=== PATIENT | male | born 1955 | race Caucasian/White ===

== ENCOUNTER → 2018-09-03 22:12 | Emergency (ER) | payer MEDICAID, MEDICARE ==
--- NOTE | 2018-09-03 22:31 | ED ---
Lower Extremity - HPI Summary HPI Summary: This patient is a 62 year old male brought in by ambulance to [facility] with a chief complaint of left hip pain since 1 hour ago. Patient states that he suffered a mechanical fall while attempting to move from his wheelchair to his bed. He states that his legs gave out on him, which does not happen very often. Patient cites pain on the left hip and pain on the left side of his head from hitting a table during the fall. The pain is rated 0/10 in severity. Symptoms aggravated by nothing. Symptoms alleviated by nothing. Patient additionally reports contusion on left anabaptism. Patient denies headache, nausea. Patient has a hx of stroke. - History of Current Complaint Stated Complaint: FALL Time Seen by Provider: 09/03/18 22:18 Hx Obtained From: Patient Mechanism Of Injury: Fall From A Standing Position Onset of Pain: Immediate Onset/Duration: Hours Severity Currently: Mild Pain Intensity: 0 Pain Scale Used: 0-10 Numeric Timing: Constant Location: Is Discrete @ - left hip Associated Signs And Symptoms: Positive: Negative - headache, nausea, Other - contusion on left anabaptism Aggravating Factor(s): Nothing Alleviating Factor(s): Nothing - Allergies/Home Medications Allergies/Adverse Reactions: Allergies Allergy/AdvReac Type Severity Reaction Status Date / Time No Known Allergies Allergy Verified 12/26/14 08:05 PMH/Surg Hx/FS Hx/Imm Hx Previously Healthy: No Endocrine/Hematology History: Reports: Hx Diabetes Cardiovascular History: Reports: Hx Hypercholesterolemia, Hx Hypertension, Hx Peripheral Vascular Disease, Other Cardiovascular Problems/Disorders - Afib Denies: Hx Pacemaker/ICD Respiratory History: Denies: Hx Chronic Obstructive Pulmonary Disease (COPD) History: Denies: Hx Dialysis Musculoskeletal History: Reports: Hx Arthritis - HIPS Sensory History: Reports: Hx Contacts or Glasses Denies: Hx Cataracts, Hx Eye Injury, Hx Eye Prosthesis, Hx Glaucoma, Hx Legally Blind, Hx Macular Degeneration, Hx Vision Problem, Hx Deafness, Hx Hearing Aid, Hx Hearing Problem, Other Sensory Impairments Opthamlomology History: Reports: Hx Contacts or Glasses Denies: Hx Cataracts, Hx Eye Injury, Hx Eye Prosthesis, Hx Glaucoma, Hx Legally Blind, Hx Macular Degeneration, Hx Vision Problem, Other Sensory Impairments Neurological History: Reports: Hx Transient Ischemic Attacks (TIA) Denies: Hx Dementia, Hx Developmental Delay, Hx Headaches, Hx Migraine, Hx Nerve Disease, Hx Seizures, Hx Spinal Cord Injury, Other Neuro Impairments/ Disorders Psychiatric History: Reports: Hx Depression Denies: Hx Panic Disorder - Surgical History Surgery Procedure, Year, and Place: RIGHT HIP 12/26/2014;. 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 - Social History Lives: At [facility] Alcohol Use: Occasionally Alcohol Amount: states about 2 a week Hx Substance Use: No Substance Use Type: Reports: None Hx Tobacco Use: No Smoking Status (MU): Never Smoked Tobacco Review of Systems Negative: Fever Negative: Nausea Positive: Other - contusion on left anabaptism, left hip pain Negative: Headache All Other Systems Reviewed And Are Negative: Yes Physical Exam - Summary Physical Exam Summary: Appearance: Well-appearing, Well-nourished, lying in bed comfortable Skin: Warm, dry, Contusion of left anabaptism and contusion overlying left great trochanter Eyes: sclera anicteric, no conjunctival pallor ENT: mucous membranes moist Neck: deferred Respiratory: No signs of respiratory distress Cardiovascular: Appears well perfused, pulses are nml Abdomen: deferred Musculoskeletal: Moving all 4 extremities without obvious discomfort Neurological: Awake and alert, mentation is normal, speech is fluent and appropriate Psychiatric: affect is normal, does not appear anxious or depressed Triage Information Reviewed: Yes Vital Signs Reviewed: Yes Diagnostics - Laboratory Result Diagrams: 09/03/18 22:43 09/03/18 22:43 Lab Statement: Any lab studies that have been ordered have been reviewed, and results considered in the medical decision making process. - EKG 2243 Cardiac Rate: NL EKG Rhythm: Sinus Rhythm - 83 BPM Summary of EKG Findings: An EKG, taken 2243, reveals NSR (83 BPM), sinus pause, RBBB, old inferior infarct Lower Extremity Course/Dx - Course Assessment/Plan: This patient is a 62 year old male brought in by ambulance to [facility] with a chief complaint of left hip pain since 1 hour ago. Patient states that he suffered a mechanical fall while attempting to move from his wheelchair to his bed. An EKG, taken 2243, reveals NSR (83 BPM), sinus pause, RBBB, old inferior infarct. Patient will be discharged with a dx of hip contusion. Patient is advised to follow up with PCP in 3 days. The patient is agreeable with this plan. - Diagnoses Provider Diagnoses: Contusion, hip Discharge - Sign-Out/Discharge Documenting (check all that apply): Patient Departure - Discharge Plan Condition: Stable Disposition: HOME Patient Education Materials: Hip Contusion (ED) Referrals: Caden Malik MD [Primary Care Provider] - - Attestation Statements Document Initiated by Scribe: Yes Documenting Scribe: Magaly Mooney Provider For Whom Jonnathanibe is Documenting (Include Credential): Michel Benitez MD Scribe Attestation: Magaly Foley, scribed for Michel Benitez MD on 09/04/18 at 0211. Status of Scribe Document: Ready
[2018-09-03 22:57] LABS: ABS Basophils 0.1 10^3/ul (0-0.2); ABS Eosinophils 0.2 10^3/ul (0-0.6); ABS Lymphocytes 1.1 10^3/ul (1.0-4.8); ABS Monocytes 0.6 10^3/ul (0-0.8); ABS Neutrophils 10.8 10^3/ul (1.5-7.7); ABS Nucleated RBC 0 10^3/ul; Eosinophil % 1.2 %; Hematocrit 52 % (42-52); Hemoglobin 17.3 g/dl (14.0-18.0); Lymphocyte % 8.4 %; Mean Corpuscular HGB Conc 33 g/dl (31-36); Mean Corpuscular Hemoglobin 30 pg (27-31); Mean Corpuscular Volume 91 fL (80-94); Mean Platelet Volume 9.2 fL (7.4-10.4); Nucleated Red Blood Cells % 0.1; Platelet Count 230 10^3/ul (150-450); Red Cell Distribution Width 14 % (10.5-15); White Blood Count 12.7 10^3/ul (3.5-10.8)
[2018-09-03 23:04] LABS: INR 1.16 (0.77-1.02)
[2018-09-03 23:09] LABS: Albumin/Globulin Ratio 1.4 (1-3); BUN/Creatinine Ratio 25.7 (8-20); Calcium 9.5 mg/dL (8.6-10.3); EGFR African American 91.2 (>60); EGFR Non-African American 75.4 (>60); Globulin 2.9 g/dL (2-4); Potassium 3.8 mmol/L (3.5-5.0); Total Bilirubin 0.7 mg/dL (0.2-1.0); Total Protein 6.9 g/dL (6.4-8.9)
--- OUTSIDE RECORDS SUMMARY | 2018-09-03 23:27 | XMS REPORT | Continuity of Care Document ---
:1955 External Reference #:[id number] Author Name Kim Galdamez Care Team Providers Name Role Phone Shasta Bee DO Primary Care Physician Unavailable Payers Type Date Identification Numbers Payment Provider Subscriber Policy Number: [id number] Medicare Rafael Medley PayID: [id number] [address] [place] [address] Policy Number: [id number] Medicaid Rafael Medley Group Name: 1 1 [address] PayID: [id number] [place] [address] Advance Directives Description No Information Available Problems Date Description Provider Status Onset: 02/09/2014 Malignant essential hypertension Amilcar Guerra M.D. Onset: 02/09/2014 Electrocardiogram abnormal Amilcar Guerra M.D. Onset: 02/09/2014 Supraventricular premature beats Amilcar Guerra M.D. 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 Onset: 11/24/2017 Mitral valve disorder Amilcar Guerra M.D. Onset: 11/24/2017 First degree atrioventricular block Amilcar Guerra M.D. Onset: 11/24/2017 Right bundle branch block Jamin Weldon Active [place] Onset: 11/24/2017 Left bundle branch hemiblock Jamin Weldon Active MGely. Onset: 11/24/2017 Bradycardia, unspecified [place] ECHO Schedule Active Onset: 11/24/2017 Bifascicular block Jamin Weldon Active M.DMichael Onset: 11/24/2017 Malaise and fatigue Mago Juan, Active [facility] [employer] [facility] Onset: 11/24/2017 Unspecified dementia without Mago Juan, Active behavioral disturbance [employer] Onset: 11/24/2017 Cerebral artery occlusion Mago Juan, Active [employer] Onset: 11/24/2017 Fall Amy Sidhu, [employer] Active Onset: 11/24/2017 Right bundle branch block Jamin Weldon Active [place] Onset: 11/24/2017 Seizure Milton Rowe M.D. Active Onset: 11/24/2017 Arterial thrombosis Timothy Jacobs M.D. Active Onset: 11/24/2017 Altered mental status Milton Rowe M.D. Active Onset: 11/24/2017 Cerebral artery occlusion Amilcar Guerra M.D. Onset: 11/24/2017 Conduction disorder of the heart Amilcar Guerra M.D. Onset: 11/24/2017 Essential hypertension Amilcar Guerra M.D. Onset: 11/24/2017 Cerebral artery occlusion Anali Stewart M.D. Active Onset: 11/24/2017 Type 2 diabetes mellitus Anali Stewart M.D. Active Onset: 11/24/2017 Alcohol abuse Anali Stewart M.D. Active Onset: 11/24/2017 Acute ill-defined cerebrovascular Baldo Quintero M.D. Active disease Onset: 11/24/2017 Electroencephalogram abnormal Radha Darling MD Active Onset: 11/24/2017 Altered mental status Frank Ritter M.D. Active Onset: 11/24/2017 Aftercare Following Joint Alecia Milner M.D. Active Replacement Onset: 11/24/2017 Prosthetic arthroplasty of the hip Alecia Milner M.D. Active Onset: 11/24/2017 Degenerative joint disease of Alecia Milner M.D. Active pelvis Onset: 11/24/2017 Aftercare, Orthopedic Other Alecia Milner M.D. Active Onset: 11/24/2017 Blood chemistry abnormal Carol Marte N.P. Active Onset: 11/24/2017 Hyperlipidemia Sunny Roberson M.D. Active Onset: 11/24/2017 Systemic inflammatory response Esteban Garner N.P. Active syndrome Onset: 11/24/2017 Localized, primary osteoarthritis Alecia Milner M.D. Active of the pelvic region and thigh Onset: 11/24/2017 Arthralgia of the pelvic region and Alecia Milner M.D. Active thigh Onset: 11/24/2017 Ulcer of foot Timothy Lozada M.D. Active Onset: 11/24/2017 Aftercare Following Surgery Of The Timothy Lozada M.D. Active Musculoskeletal System, NEC Onset: 11/24/2017 Chronic osteomyelitis of ankle Timothy Lozada M.D. Active and/or foot Onset: 11/24/2017 Amputated big toe Timothy Lozada M.D. Active Onset: 11/24/2017 Removal of suture Timothy Lozada M.D. Active Onset: 11/24/2017 Infection of skin and/or Timothy Lozada M.D. Active subcutaneous tissue Onset: 11/24/2017 Conduction disorder of the heart Amilcar Guerra M.D. Onset: 11/24/2017 Mixed hyperlipidemia Amilcar Guerra M.D. Family History Date Family Member(s) Problem(s) Comments General Heart Disease General Cancer Father due to [place] () - 62 Mother Pancreatic Cancer endstage First Sister Heart Disease half sister, mom Social History Type Date Description Comments Sex Unknown Marital Status Lives With living at skilled facility Occupation Disabled Tobacco Use Start: Unknown Never Smoked Cigarettes Smoking Status Reviewed: 02/24/18 Never Smoked Cigarettes ETOH Use Denies alcohol use Tobacco Use Start: Unknown Patient has never smoked Recreational Drug Use Denies Drug Use Exercise Type/Frequency Does not exercise Allergies, Adverse Reactions, Alerts Date Description Reaction Status Severity Comments 07/19/2015 Gabapentin dizzy Active per [facility] 07/19/2015 Lipitor BP elevation Active per [facility] 02/09/2014 NKDA Inactive Medications Medication Date Status Form Strength Qnty SIG Indications Ordering Provider Metformin HCL 02/08/ Active Tablets 1000mg 1 by mouth E11.9 Jeannie 2018 twice a day Osmany, BRITTANY Ketoconazole 11/24/ Active Shampoo 2% apply Jeannie 2017 topically as Osmany, directed to [facility] [place] Atorvastatin 01/22/ Active Tablets 20mg 30tab take 1 tablet Qutaybeh Calcium 2016 s at bedtime Ema Weldon M.D. Metoprolol / Active Tablets 25mg 1 po qd Unknown Succinate 0000 Lisinopril / Active Tablets 20mg 1 by mouth Unknown 0000 every day Vitamin B-12 / Active 1000mcg 1 by mouth Unknown 0000 every day Vitamin D3 / Active 2000Iu 1 by mouth Unknown 0000 every day Xarelto / Active Tablets 20mg 1 by mouth Unknown 0000 every day Tylenol / Active Tablets 325mg 2 by mouth Rohit, 0000 every 6 hours Shasta, prn DO [id number] Loperamide HCL / Active Capsules 2mg take one Unknown 0000 capsule by mouth every 4 hours as needed Abilify / Active Tablets 2mg 1 by mouth Unknown 0000 every day Sertraline HCL / Active Tablets 100mg 1 by mouth Unknown 0000 every day Venlafaxine HCL 11/24/ Hx Tablets 37.5mg 30tab 1 by mouth Jeannie 2018 - s every day for Osmany, 01/07/ 2 weeks (end [facility] [facility] 2017 date 11/28/17) Metformin HCL 11/24/ Hx Tablets 500mg 90tab 1 by mouth Jeannie ER 2018 - ER 24HR s every day Osmany, 02/08/ with [facility] [employer] [facility] 2018 breakfast and hs Percocet 02/19/ Hx Tablets 5-325mg 40tab 1-2 by mouth V54.81 Alecia 2014 - s bid as needed Alf, 01/01/ pain M.D. 2014 Percocet 12/21/ Hx Tablets 5-325mg 60tab 1-2 tabs by Alecia 2014 - s mouth tid as Alf, 01/01/ needed pain M.D. 2014 Colace 12/21/ Hx Capsules 100mg 60cap 1 tab by Alecia 2014 mouth twice a Alf, 11/24/ day as needed M.D. 2017 constipation Coumadin 12/21/ Hx Tablets 2mg 90tab 1-3 tab by Alecia 2014 mouth as Alf, 01/01/ directed at M.D. 2014 5pm daily Metronidazole 09/25/ Hx Tablets 500mg 20tab 1 tab by 730.17 Yovani 2014 mouth every D. 04/30/ 12 hours Jey 2014 Robbin Sulfamethoxazol 09/18/ Hx Tablets 800-160mg 28tab 1 by mouth Timothy e/Trimethoprim 2014 twice a day x TOM Lozada 12/06/ days M.Emiliano 2014 Augmentin 02/23/ Hx Tablets 875-125mg 28tab 1 by mouth 730.17 Yovani 2013 - s twice a day D. 08/20/ Jey 2014 Robbin Lisinopril 02/09/ Hx Tablets 5mg 30tab 1 by mouth Jamin 2013 - s every day S. 08/20/ Fatemeh Cage M.D. Clonidine HCL / Hx Tablets 0.1mg 1 by mouth Unknown 0000 - bid 2016 Metformin HCL / Hx Tablets 500mg 60tab 1 by mouth Unknown 0000 - s twice a day 2015 Amoxicillin/Cla / Hx Tablets 875-125mg 20tab one tablet by Unknown vulanate 0000 - s mouth twice Potassium 08/20/ daily for 10 2014 days Diclofenac-Miso / Hx Tablets 50-0.2mg 1 po bid Unknown prostol 0000 - DR 2014 Aspirin Ec / Hx Tablets 81mg 1 by mouth Unknown 0000 - DR every day 2016 Oxycodone-Aceta / Hx Tablets 5-325mg Darlow, minophen - Caden A., 2014 Losartan 00/ Hx Tablets 100mg 1 po qd Darlow, Potassium 0000 - Caden A., 2015 Fenofibrate / Hx Capsules 67mg Darlow, Micronized 0000 - Caden A., 2014 Oxycodone HCL 00/ Hx Tablets 10mg 1 by mouth Unknown 0000 - every 6 hours 01/01/ as needed 2014 pain Enoxaparin / Hx Solution 100mg/ml sq twice a Unknown Sodium 0000 - day (last 07/18/ dose 05/02 pm) 2014 Fenofibrate / Hx Capsules 134mg 1 po qd Unknown Micronized 0000 - 2015 Warfarin Sodium / Hx Tablets 5mg 10mg on 04/30 Unknown 0000 - 7.5 mg 05/01 01/19/ recheck 05/[address] Malki Priandrec / Hx Capsules 20mg 1 by mouth Unknown 0000 - DR every day 2016 Simvastatin / Hx Tablets 40mg 1 by mouth Unknown 0000 - every day 2016 Amlodipine / Hx Tablets 5mg 1 by mouth Unknown Besylate 0000 - every day 2017 Prozac / Hx Capsules 30mg 20 mg tab and Unknown 0000 - 10 mg tab for 09/01/ a total of 30 2018 mg daily Remeron / Hx Tablets 15mg give 7.5 mg Rohit, 0000 - by mouth at Shasta, 01/07/ bedtime DO 2018 Effexor XR / Hx Caps ER 75mg 1 by mouth Unknown 0000 - 24HR every day 2017 Immunizations Description No Information Available Vital Signs Date Vital Result Comment 08/12/2018 1:54pm Heart Rate 60 /min BP Systolic Sitting 130 mmHg BP Diastolic Sitting 80 mmHg Respiratory Rate 17 /min O2 % BldC Oximetry 99 % 07/01/2018 3:55pm Weight 177.00 lb Heart Rate 67 /min BP Systolic 110 mmHg BP Diastolic 70 mmHg Respiratory Rate 18 /min Body Temperature 96.9 F O2 % BldC Oximetry 97 % 03/16/2018 11:33am Heart Rate 72 /min BP Systolic 126 mmHg BP Diastolic 74 mmHg Respiratory Rate 16 /min Body Temperature 98.4 F O2 % BldC Oximetry 98 % 02/24/2018 10:27am Height 74 inches 6'2" Heart Rate 82 /min BP Systolic Sitting 134 mmHg lue reg cuff BP Diastolic Sitting 94 mmHg lue reg cuff Ejection Fraction 55-60% echo 02/08/18 01/07/2018 2:15pm Weight 211.12 lb BP Systolic 114 mmHg BP Diastolic 72 mmHg 09/02/2017 1:38pm Weight 158.00 lb pt reported, in wheelchair Heart Rate 60 /min BP Systolic Sitting 140 mmHg LA, reg cuff BP Diastolic Sitting 72 mmHg LA, reg cuff Ejection Fraction 60%-65% echo 03/18/17 01/22/2017 10:08am Height 74 inches 6'2" Weight 191.00 lb w/shoes Heart Rate 60 /min BP Systolic Sitting 118 mmHg Ra reg cuff BP Diastolic Sitting 88 mmHg Ra reg cuff BMI (Body Mass Index) 24.5 kg/m2 Ejection Fraction 60-65% Echo 01/03/16 01/21/2016 11:18am Height 74 inches 6'2" Heart Rate 68 /min BP Systolic Sitting 106 mmHg LA reg cuff BP Diastolic Sitting 84 mmHg LA reg cuff Ejection Fraction 60-65% Echo 01/14/16 07/19/2015 4:14pm Height 74 inches 6'2" Weight 221.25 lb with shoes Heart Rate 70 /min BP Systolic Sitting 142 mmHg La reg cuff BP Diastolic Sitting 96 mmHg La reg cuff Respiratory Rate 17 /min BMI (Body Mass Index) 28.4 kg/m2 Ejection Fraction 55-60% date 04/24/15 Raymundo 05/01/2015 3:46pm Height 74 inches 6'2" Weight 221.75 lb w/shoes Heart Rate 50 /min BP Systolic Sitting 142 mmHg LA reg cuff BP Diastolic Sitting 80 mmHg LA reg cuff BMI (Body Mass Index) 28.5 kg/m2 Ejection Fraction 55-60 Raymundo 04/24/15 03/19/2015 7:53am Height 74 inches 6'2" Weight 225.00 lb Pain Level 0 BMI (Body Mass Index) 28.9 kg/m2 02/19/2015 2:42pm Height 74 inches 6'2" Weight 225.00 lb Pain Level 0 BMI (Body Mass Index) 28.9 kg/m2 01/12/2015 10:30am Height 74 inches 6'2" Weight 225.00 lb Body Temperature 95.9 F BMI (Body Mass Index) 28.9 kg/m2 12/21/2014 2:16pm Height 74 inches 6'2" Weight 225.00 lb Heart Rate 57 /min BP Systolic 152 mmHg BP Diastolic 102 mmHg Pain Level 5 BMI (Body Mass Index) 28.9 kg/m2 12/07/2014 9:49am Height 74 inches 6'2" Weight 225.00 lb Heart Rate 49 /min BP Systolic 152 mmHg BP Diastolic 105 mmHg Pain Level 7 BMI (Body Mass Index) 28.9 kg/m2 10/31/2014 3:08pm Height 74 inches 6'2" Weight 225.00 lb Pain Level 3 BMI (Body Mass Index) 28.9 kg/m2 2014 4:40pm Height 74 inches 6'2" Weight 225.00 lb Pain Level 5 BMI (Body Mass Index) 28.9 kg/m2 09/29/2014 3:52pm Height 74 inches 6'2" Heart Rate 51 /min BP Systolic 144 mmHg BP Diastolic 92 mmHg 09/25/2014 1:57pm Height 74 inches 6'2" Weight 228.00 lb w/ brace Heart Rate 56 /min BP Systolic Sitting 158 mmHg BP Diastolic Sitting 98 mmHg Body Temperature 97.4 F BMI (Body Mass Index) 29.3 kg/m2 09/19/2014 2:59pm Height 74 inches 6'2" Weight 228.00 lb Pain Level 8 BMI (Body Mass Index) 29.3 kg/m2 08/30/2014 1:45pm Height 74 inches 6'2" Weight 228.00 lb Heart Rate 58 /min BP Systolic 153 mmHg BP Diastolic 98 mmHg Pain Level 0 BMI (Body Mass Index) 29.3 kg/m2 08/21/2014 2:43pm Height 74 inches 6'2" Weight 228.00 lb Heart Rate 60 /min BP Systolic Sitting 132 mmHg BP Diastolic Sitting 81 mmHg Respiratory Rate 14 /min Body Temperature 98.1 F BMI (Body Mass Index) 29.3 kg/m2 02/23/2014 2:13pm Weight 226.00 lb Heart Rate 58 /min irregular BP Systolic Sitting 162 mmHg BP Diastolic Sitting 90 mmHg Respiratory Rate 16 /min Body Temperature 97.6 F 02/10/2014 11:02am Height 74 inches 6'2" Weight 231.00 lb Heart Rate 49 /min BP Systolic 165 mmHg BP Diastolic 90 mmHg BMI (Body Mass Index) 29.7 kg/m2 02/09/2014 11:24am Height 74 inches 6'2" Weight 230.00 lb Heart Rate 80 /min irregular BP Systolic Sitting 186 mmHg BP Diastolic Sitting 118 mmHg Respiratory Rate 16 /min BMI (Body Mass Index) 29.5 kg/m2 Results Test Date Facility Test Result H/L Range Note Laboratory test 07/12/2018 [facility] Hemoglobin A1c 5.1 % N 4.0-5.6 1, 2 finding (Glyco HGB) [place] [address] [phone] Urinalysis 12/21/2014 [facility] [place] [address] [phone] Urine Appearance Cloudy N Urine Specific [place] 1.024 N 1.010-1.030 Urine pH 5.0 N 5-9 Urine Urobilinogen Negative N Negative Urine Ketones Negative N Negative Urine Protein Negative N Negative Urine Leukocytes Negative N Negative Urine Blood Negative N Negative Urine Nitrite Negative N Negative Urine Bilirubin Negative N Negative Urine Glucose Negative N Negative Basic Metabolic Panel 12/21/2014 [facility] Sodium 139 mmol/L N 133-145 [place] [address] [phone] Potassium 4.1 mmol/L N 3.5-5.0 Chloride 102 mmol/L N 101-111 Co2 Carbon Dioxide 31 mmol/L N 22-32 Anion Gap 6 mmol/L N 2-11 Glucose 97 mg/dL N 70-100 Blood Urea Nitrogen 20 mg/dL N 6-24 Creatinine 1.84 mg/dL High 0.67-1.17 BUN/Creatinine Ratio 10.9 N 8-20 Calcium 9.3 mg/dL N 8.6-10.3 Egfr Non- 38.1 N >60 Egfr 49.0 N >60 3 Type & Screen 12/21/2014 [facility] Patient [place] [address] [phone] Antibody Screen NEGATIVE N Wound 09/19/2014 [facility] Wound/Misc (SEE 4, 5 Culture/Sensi Culture-Gram NOTE) [place] [address] Stain [phone] Laboratory test 09/19/2014 [facility] Anaerobic Culture (SEE 6 finding NOTE) [place] [address] [phone] Surgical Pathology 09/19/2014 [facility] S RUN DATE: [address]/ [place] [address] <SEE [phone] NOTE> Comp Metabolic 02/23/2014 Sodium 138 N 133- Panel mmol/L 145 Potassium 4.4 mmol/L N 3.7-5.6 Chloride 103 mmol/L N 101-111 Co2 Carbon Dioxide 30 mmol/L N 22-32 Anion Gap 5 mmol/L N 2-11 Glucose 207 mg/dL High 70-100 Blood Urea Nitrogen 21 mg/dL N 6-24 Creatinine 1.31 mg/dL High 0.67-1.17 BUN/Creatinine Ratio 16.0 N 8-20 Calcium 9.6 mg/dL N 8.6-10.3 Total Protein 7.5 g/dL N 6.4-8.9 Albumin 4.3 g/dL N 3.2-5.2 Globulin 3.2 g/dL N 2-4 Albumin/Globulin Ratio 1.3 N 1-3 Total Bilirubin 1.00 mg/dL N 0.2-1.0 Alkaline Phosphatase 125 U/L High 34-104 Alt 22 U/L N 7-52 Ast 15 U/L N 13-39 Egfr Non- 56.6 N >60 Egfr 72.8 N >60 8 CBC Auto Diff 02/23/2014 White Blood Count 11.3 10^3/uL High 4.8-10.8 Red Blood Count 5.62 10^6/uL High 4.0-5.4 Hemoglobin 17.7 g/dL N 14.0-18.0 Hematocrit 51 % N 42-52 Mean Corpuscular Volume 91 fL N 80-94 Mean Corpuscular Hemoglobin 31 pg N 27-31 Mean Corpuscular HGB Conc 35 g/dL N 31-36 Red Cell Distribution Width 13 % N 10.5-15 Platelet Count 235 10^3/uL N 150-450 Mean Platelet Volume 10 um3 N 7.4-10.4 Abs Neutrophils 8.7 10^3/uL High 1.5-7.7 Abs Lymphocytes 1.4 10^3/uL N 1.0-4.8 Abs Monocytes 0.9 10^3/uL High 0-0.8 Abs Eosinophils 0.1 10^3/uL N 0-0.6 Abs Basophils 0.1 10^3/uL N 0-0.2 Abs Nucleated RBC 0.01 10^3/uL N Granulocyte % 77.2 % N 38-83 Lymphocyte % 12.8 % Low 25-47 Monocyte % 8.0 % N 1-9 Eosinophil % 1.2 % N 0-6 Basophil % 0.8 % N 0-2 Nucleated Red Blood Cells % 0.1 N Laboratory test finding 02/23/2014 C Reactive Protein 2.04 mg/L N < 5.00 9 Erythrocyte Sed Rate 4 mm/Hr N 0-20 Wound Culture/Sensi 02/23/2014 [facility] Wound/Misc (SEE NOTE) [address] [place] [address] [phone] 1 [facility] [address], Room Number 206D [id number] 2 Therapeutic target for the treatment of diabetes mellitus patients is <7% HBA1C, and in selective patients <6.0%. Please refer to [place] Diabetes Association diabetic care guidelines for further information. 3 Because ethnic data is not always readily available, this report includes an eGFR for both -Americans and non- Americans. The National Kidney Disease Education Program (NKDEP) does not endorse the use of the MDRD equation for patients that are not between the ages of 18 and 70, are , have extremes of body size, muscle mass, or nutritional status, or are non- or non-. According to the National Kidney Foundation, irrespective of diagnosis, the stage of the disease is based on the level of kidney function: Stage Description GFR(mL/min/1.73 m(2)) 1 Kidney damage with normal or decreased GFR 90 2 Kidney damage with mild decrease in GFR 60-89 3 Moderate decrease in GFR 30-59 4 Severe decrease in GFR 15-29 5 Kidney failure <15 (or dialysis) 4 RIGHT GREAT TOE 5 RUN DATE: 09/19/14 [facility] LAB LIVE PAGE 1 RUN TIME: 9107 [address] [facility], [place], [place] [address] Specimen Inquiry Name: RAFAEL MEDLEY I : [address]: Timothy Lozada MD Acct: [id number] Unit: [id number] AGE: 58 Location: OR Re09/18/14 SEX: M Status: REG SDC SPEC: [id number] DAVID: 09/19/[address]: Timothy Lozada MD REQ: [id number] RECD: 09/19/14 STATUS: RES OTHR DR: Caden Malik MD _ SOURCE: WOUND SPDESC:OTHER ORDERED: Anaerobic Cult, Culture Stain COMMENTS: RIGHT GREAT TOE QUERIES: Specimen Description RIGHT GREAT TOE Procedure Result Verified Site Anaerobic Culture PENDING Wound/Misc Gram Stain Final 09/19/14- 1547 ML 1+ Neutrophils 1+ Epithelial Cells 1+ Gram Negative Bacilli Wound/Misc Culture PENDING END OF REPORT * ML=Testing performed at Main Lab DEPARTMENT OF PATHOLOGY, [facility] Ticket [employer] [place], [place] [address] Marin Caballero M.D. Director [facility] # [id number] RUN DATE: 09/23/14 [facility] LAB LIVE PAGE 1 RUN TIME: [address] [place] [address] Specimen Inquiry Name: RAFAEL MEDLEY Og : [address]: Timothy Lozada MD Acct: [id number] Unit: [id number] AGE: 58 Location: OR Re09/18/14 SEX: M Status: REG SDC SPEC: [id number] DAVID: 09/19/[address] [facility] [address]: Timothy Lozada MD REQ: [id number] RECD: 09/19/14 STATUS: GABBI ELENA DR: Caden Malik MD _ SOURCE: WOUND SPDESC:OTHER ORDERED: Anaerobic Cult, Culture Stain COMMENTS: RIGHT GREAT TOE QUERIES: Specimen Description RIGHT GREAT TOE Procedure Result Verified Site Anaerobic Culture Final 09/23/14- 1037 ML No Growth Day 4 Wound/Misc Gram Stain Final 09/19/14- 1547 ML 1+ Neutrophils 1+ Epithelial Cells 1+ Gram Negative Bacilli Wound/Misc Culture Final 09/23/14- 1037 ML No Growth Day 4 END OF REPORT * ML=Testing performed at Main Lab DEPARTMENT OF PATHOLOGY, [facility] Ticket [employer] [place], [place] [address] Marin Caballero M.D. Director [facility] # [id number] RUN DATE: 10/05/14 [facility] LAB LIVE PAGE 1 RUN TIME: [address] [facility] youcalc [place], [place] [address] Specimen Inquiry Name: RAFAEL MEDLEY I : [address]: Timothy Lozada MD Acct: [id number] Unit: [id number] AGE: 58 Location: OR Re09/18/14 SEX: M Status: REG [facility] SPEC: [id number] DAVID: 09/19/14- [facility] DR: Timothy Lozada MD REQ: [id number] RECD: 09/19/14-1023 STATUS: SOUT _ ORDERED: Decal, LEVEL IV FINAL DIAGNOSIS Right great toe, disarticulation: -- Ulcer and ulcer bed. -- Margins of resection viable. -- Bone and cartilage with reactive change and no evidence of acute osteomyelitis. COMMENT: Due to an unusually large number of plasma cells in the inflammatory infiltrate, kappa and lambda in situ hybridization studies were performed, with appropriately reacting controls, and show that the plasma cell infiltrate is polyclonal. PRE-OPERATIVE DIAGNOSIS Osteomyelitis right great toe GROSS DESCRIPTION The specimen is received in formalin labeled, Disarticulation Right Great Toe , and consists of a 7.3 x 4.4 x 3.3 cm disarticulated digit which is partially surfaced by a 1.8 x 1.2 cm figueroa-yellow unguis. The bone margin displays smooth to granular figueroa-white articular surface. The skin margin appears viable. There is a 1.8 x 1.3 x 0.5 cm figueroa briseno crusted area and a 0.8 x 0.6 x 0.3 cm briseno white thickened area, on the medial and lateral aspects of the unguis respectively. The remaining skin is wrinkled figueroa-pink. Received separately in the same container is a 3.3 x 2.5 x 1.0 cm aggregate of multiple figueroa-white irregular bone and soft tissue fragments. The specimen is sectioned and client account representative sections are submitted in cassettes A through D as follows: A-skin margin, B-skin lesions and C- bone margin following decalcification. Signed (signature on file) Janice Dixon MD 12/15 1515 END OF REPORT * ML=Testing performed at Main Lab DEPARTMENT OF PATHOLOGY, [facility] [employer] [place], [place] [address] Marin Caballero M.D. Director [facility] # [id number] 8 Because ethnic data is not always readily available, this report includes an eGFR for both -Americans and non- Americans. The National Kidney Disease Education Program (NKDEP) does not endorse the use of the MDRD equation for patients that are not between the ages of 18 and 70, are , have extremes of body size, muscle mass, or nutritional status, or are non- or non-. According to the National Kidney Foundation, irrespective of diagnosis, the stage of the disease is based on the level of kidney function: Stage Description GFR(mL/min/1.73 m(2)) 1 Kidney damage with normal or decreased GFR 90 2 Kidney damage with mild decrease in GFR 60-89 3 Moderate decrease in GFR 30-59 4 Severe decrease in GFR 15-29 5 Kidney failure <15 (or dialysis) 9 Acute inflammation: >10.00 10 RUN DATE: 02/26/14 [facility] LAB LIVE PAGE 1 RUN TIME: [address] [facility] youcalc [place], [place] [address] Specimen Inquiry Name: RAFAEL MEDLEY I : [address]: Yovani Truong MD Acct: [id number] Unit: [id number] AGE: 58 Location: [facility] Re02/23/14 SEX: M Status: REG REF SPEC: [id number] DAVID: 02/23/14-[address] [facility] [address]: Yovani Truong MD REQ: [id number] RECD: 02/23/14 STATUS: COMP _ SOURCE: WOUND SPDESC:WOUND ORDERED: Culture Stain QUERIES: Medent Number [id number] Specimen Description RIGHT GREAT TOE Procedure Result Verified Site Wound/Misc Gram Stain Final 02/24/14- 818 ML 2+ Polys 2+ Nucleated Cells 1+ Epithelial Cells 1+ Gram Positive Cocci in Clusters, resembling Staph Wound/Misc Culture Final 02/26/14- 1154 ML Organism 1 PROTEUS MIRABILIS/PENNERI Quantity 3+ Organism 2 STAPHYLOCOCCUS AUREUS Quantity 1+ 1. PROTEUS MIRABILIS/PENNERI M.I.C. RX --------- ------ Ampicillin <=2 S Cefazolin <=4 S Cefepime <=1 S Ceftriaxone <=1 S Ciprofloxacin <=0.25 S Gentamicin <=1 S Levofloxacin <=0.12 S Meropenem <=0.25 S Nitrofurantoin 256 R Tetracycline >=16 R CONTINUED ON NEXT PAGE * ML=Testing performed at Main Lab DEPARTMENT OF PATHOLOGY, [facility] Ticket ABC [place] [address] Marin Caballero M.D. Director [facility] # [id number] RUN DATE: 02/26/14 [facility] LAB LIVE PAGE 2 RUN TIME: [address] [facility] [employer] [place], [place] [address] Specimen Inquiry Patient: RAFAEL MEDLEY I [id number] (Continued) Specimen: [id number] Collected: 02/23/14-1448 Received: 02/23/14 (Continued) Procedure Result Verified Site Wound/Misc Culture Final (continued) 02/26/14- 1154 1. PROTEUS MIRABILIS/PENNERI (continued) M.I.C. RX --------- ------ Pipercillin/Tazobactam <=4 S Trimethoprim/Sulfamethoxazole <=20 S Amoxicillin/Clavulanic Acid <=2 S Aztreonam <=1 S 2. STAPHYLOCOCCUS AUREUS M.I.C. RX --------- ------ Penicillin >=0.5 R Clindamycin <=0.25 S Erythromycin <=0.25 S Gentamicin <=0.5 S Linezolid 2 S Nitrofurantoin 32 S Oxacillin <=0.25 S * Quinupristin/Dalfopristin <=0.25 S Rifampin <=0.5 S Tetracycline <=1 S Doxycycline - Deduced S * Minocycline - Deduced S Trimethoprim/Sulfamethoxazole <=10 S Vancomycin 1 S Imipenem-Deduced S * Ampicillin/Sulbactam-Deduced S Cefazolin-Deduced S * These antibiotics are not available in the [facility] Formulary Contact the Microbiology Department for any additional antibiotic reporting. CONTINUED ON NEXT PAGE * ML=Testing performed at Main Lab DEPARTMENT OF PATHOLOGY, [address] [place] [address] Marin Caballero M.D. Director [facility] # [id number] RUN DATE: 02/26/14 [facility] LAB LIVE PAGE 3 RUN TIME: 1154 [address] [place], [place] [address] Specimen Inquiry Patient: RAFAEL MEDLEY I [id number] (Continued) Specimen: [id number] Collected: 02/23/14-1448 Received: 02/23/14-1853 (Continued) Procedure Result Verified Site Wound/Misc Culture Final (continued) Contact the Microbiology Department for any additional antibiotic reporting. END OF REPORT * ML=Testing performed at Main Lab DEPARTMENT OF PATHOLOGY, [address] [place] [address] Marin Caballero M.D. Director [facility] # [id number] Procedures Date Code Description Status 08/12/2018 19655 EKG Tracing & Interpretation Completed 02/24/2018 55688 EKG Tracing & Interpretation Completed 02/08/2018 75388 ECHO Transthoracic, Real-Time 2D With Doppler And Color Completed Flow 02/08/2018 26093 ECHO Transthoracic, Real-Time 2D With Doppler And Color Completed Flow 09/02/2017 57491 EKG Tracing & Interpretation Completed 03/18/2017 83624 ECHO Transthoracic, Real-Time 2D With Doppler And Color Completed Flow 01/22/2017 07864 EKG Tracing & Interpretation Completed 01/21/2016 66833 EKG Tracing & Interpretation Completed 01/15/2016 90631 Holter Monitor Review (24 hr)dr review & interp only Completed 01/14/2016 23378 ECG Monitor/Recording W/Visual Superimposition Scanning Completed 01/03/2016 57581 ECHO Transthoracic, Real-Time 2D With Doppler And Color Completed Flow 07/19/2015 27498 EKG Tracing & Interpretation Completed 05/01/2015 32739 EKG Tracing & Interpretation Completed 04/24/2015 11246 Echocardiography, Transesophageal, Real Time W/Image 2D Completed W/W/O M-M 04/24/2015 87490 Pulse Wave/Continuous-Interp.RPT Completed 04/24/2015 23862 Color Flow Doppler/Interp & Reprt Completed 04/23/2015 77681 EEG Recording Awake & Drowsy Completed 12/28/2014 10617 Treadmill Interp/Report Only Completed 12/28/2014 05935 Stress Test Supervsn W/Out I/R Completed 12/28/2014 57423 EKG, Interpretation Only Completed 12/27/2014 01374 ECHO Transthorasic Realtime 2D W Doppler & Color Flow Hosp Completed 12/27/2014 11835 EKG, Interpretation Only Completed 12/27/2014 87264 EKG, Interpretation Only Completed 12/26/2014 57630 EKG, Interpretation Only Completed 12/26/2014 69017 THR Total Hip Replacement Completed 12/26/2014 15944 THR Total Hip Replacement Completed 09/18/2014 93522 Amputation Toe MP JT Completed 02/10/2014 20814 Rad Exam; Foot Comp Completed 02/09/2014 23640 Holter Monitor Review (24 hr)dr review & interp only Completed 02/09/2014 93957 EKG Tracing & Interpretation Completed Encounters Type Date Location Provider Dx Diagnosis Office Visit 07/01/2018 [facility] Amy Sidhu, E11.9 Type 2 diabetes 9:00a [employer] mellitus without complications F33.0 Major depressive disorder, recurrent, mild I10 Essential (primary) hypertension Office Visit 05/21/2018 9:15a [facility] Kathy E11.9 Type 2 diabetes MD Franklin mellitus without complications F33.0 Major depressive disorder, recurrent, mild I48.0 Paroxysmal atrial fibrillation I10 Essential (primary) hypertension E78.5 Hyperlipidemia, unspecified Office Visit 05/04/2018 9:00a [facility] Kathy E11.649 Type 2 diabetes MD [place] mellitus with hypoglycemia without coma E11.9 Type 2 diabetes mellitus without complications F33.0 Major depressive disorder, recurrent, mild I48.0 Paroxysmal atrial fibrillation E78.5 Hyperlipidemia, unspecified I10 Essential (primary) hypertension Office Visit 03/16/2018 10:15a [facility] Shasta Bee, E11.9 Type 2 diabetes D.O. mellitus without complications I71.9 Aortic aneurysm of unspecified site, without rupture F33.0 Major depressive disorder, recurrent, mild E78.5 Hyperlipidemia, unspecified I48.0 Paroxysmal atrial fibrillation Office Visit 02/24/2018 10:30a [facility] Aimee Boo I71.9 Aortic aneurysm of Of [place] Stitcher Foster, N.P. 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 E78.5 Hyperlipidemia, unspecified I48.0 Paroxysmal atrial fibrillation Office Visit 12/04/2017 8:15a [facility] Kathy F33.0 Major depressive MD Franklin disorder, recurrent, mild Office Visit 11/13/2017 8:15a [facility] Kathy E11.9 Type 2 diabetes MD [place] mellitus without complications I10 Essential (primary) hypertension 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 I16.9 Hypertensive crisis, unspecified E78.5 Hyperlipidemia, unspecified Office Visit 11/10/2017 9:30a [facility] Jeannie Ceorn, I69.954 Hemiplga fol [employer] unsp cerebvasc disease aff left nondom side E11.65 Type 2 diabetes mellitus with hyperglycemia Office Visit 09/02/2017 1:40p [place] Jamin SMichael I71.9 Aortic aneurysm Cardiology Robbin Weldon of unspecified site, without rupture I10 Essential (primary) hypertension I34.0 Nonrheumatic mitral (valve) insufficiency I44.0 Atrioventricular block, first degree I45.10 Unspecified right bundle-branch block 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 R00.1 Bradycardia, 11:00a [facility] Robbin Weldon unspecified R94.31 Abnormal electrocardiogram [ECG] [EKG] I10 Essential (primary) hypertension I34.0 Nonrheumatic mitral (valve) insufficiency I71.9 Aortic aneurysm of unspecified site, without rupture I44.0 Atrioventricular block, first degree I45.10 Unspecified right bundle-branch block I45.2 Bifascicular block Office Visit 03/04/2016 3:34p [facility] Mago Sherwood R53.1 Weakness Assoc,pc Drake, [employer] Hospitalists F03.90 Unspecified dementia without behavioral disturbance I63.9 Cerebral infarction, unspecified Office Visit 03/02/2016 3:32p [facility] Amy Sidhu, R53.1 Weakness Assoc,pc Hospitalists [employer] I63.9 Cerebral infarction, unspecified F03.90 Unspecified dementia without behavioral disturbance W19.xxxA Unspecified fall, initial encounter Office Visit 01/21/2016 [place] Jamin Boo R00.1 Bradycardia, 11:40a Cardiology Robbin Weldon unspecified R94.31 Abnormal electrocardiogram [ECG] [EKG] I10 Essential (primary) hypertension I34.0 Nonrheumatic mitral (valve) insufficiency I45.19 Other right bundle-branch block Office Visit 08/06/2015 9:01a [facility] Timothy I63.40 Cerebral Assoc,fiorella Jacobs M.D. infarction due Hospitalists to embolism of unsp cerebral artery I74.9 Embolism and thrombosis of unspecified artery I10 Essential (primary) hypertension Office Visit 08/06/2015 [facility] Milton Boo R56.9 Unspecified 3:52p Clinic Robbin Rowe convulsions R41.0 Disorientation, unspecified I10 Essential (primary) hypertension Office Visit 07/19/2015 4:20p [place] [facility] Jamin S. I10 Essential Robbin Weldon (primary) hypertension I63.50 Cereb infrc due to unsp occls or stenos of unsp cereb artery E11.9 Type 2 diabetes mellitus without complications R94.31 Abnormal electrocardiogram [ECG] [EKG] I34.0 Nonrheumatic mitral (valve) insufficiency R00.1 Bradycardia, unspecified Office Visit 05/01/2015 4:00p [place] [facility] Jamin S. I10 Essential Robbin Weldon (primary) hypertension I63.50 Cereb infrc due to unsp occls or stenos of unsp cereb artery E11.9 Type 2 diabetes mellitus without complications R94.31 Abnormal electrocardiogram [ECG] [EKG] I34.0 Nonrheumatic mitral (valve) insufficiency R00.1 Bradycardia, unspecified 427.89 Cardiac Dysrhythmia Other 401.9 Hypertension Unspec [facility] 434.91 Occlusion Assoc,fiorella Siegel Cerebral Artery Hospitalists Unspec W/ Cerebral Infarc 250.00 Diabetes Mellitus W/O Compl Type II Or Unspec Controlled 401.9 Hypertension Unspec 305.00 Alcohol Abuse Unspec Office Visit 04/24/2015 [facility] Alexia Foley63.50 Cereb infrc 2:30p Clinic Robbin Mann due to unsp occls or stenos of unsp cereb artery [facility].91 Occlusion 10:20a Assoc,pc Hospitalists Robbin Stewart Cerebral Artery Unspec W/ Cerebral Infarc 250.00 Diabetes Mellitus W/O Compl Type II Or Unspec Controlled 305.00 Alcohol Abuse Unspec 401.9 Hypertension Unspec Office Visit 04/23/2015 2:27p Neurohospital[facility] Radha Darling I63.50 Cereb infrc MD due to unsp occls or stenos of unsp cereb artery R94.01 Abnormal electroencephalogram [EEG] Office Visit 04/22/2015 10:18a [facility] Frank Ritter, 780.97 Altered Mental Assoc,fiorella Siegel Status Hospitalists 250.00 Diabetes Mellitus W/O Compl Type II Or Unspec Controlled 401.9 Hypertension Unspec 305.00 Alcohol Abuse Unspec Office Visit 12/28/2014 11:01a [facility] Carol Marte, 790.6 Abnormal Blood Assoc,pc N.P. Chemistry Other Hospitalists 401.9 Hypertension Unspec 250.00 Diabetes Mellitus W/O Compl Type II Or Unspec Controlled V43.64 Hip Replacement By Other Means Office Visit 12/27/2014 11:00a [facility] Carol Marte, 790.6 Abnormal Blood Assoc,pc N.P. 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 Localized Pelvic & Thigh 715.15 Osteoarthrosis Localized Prim Pelvic & Thigh 719.45 Pain Joint Pelvic Region & Thigh Office Visit 09/25/2014 [facility] Yovani Cummings 730.17 Osteomyelitis 2:20p For Anitha Truong M.D. Chronic Ankle & Diseases Foot Office Visit 08/30/2014 [facility] Timothy Lozada, 686.9 Local Infection Of 1:30p Services Of Robbin Skin And C.M.A. Subcutaneous Tissue Unspec Office Visit 08/21/2014 [facility] Yovani Cummings 730.17 Osteomyelitis 3:00p For Anitha Truong M.D. Chronic Ankle & Diseases Foot Office Visit 02/23/2014 [facility] Yovani Cummings 730.17 Osteomyelitis 2:20p For Anitha Truong M.D. Chronic Ankle & Diseases Foot Office Visit 02/10/2014 [facility] Timothy Lozada, 707.15 Ulcer Of Other Part 11:15a Services Of Robbin Of Foot C.M.A. Office Visit 02/09/2014 [place] Jamin Boo 401.0 Hypertension 12:00p Cardiology Robbin Weldon Malignant 794.31 Electrocardiogram (ECG) (EKG) Abnormal 272.2 Hyperlipidemia Mixed 250.00 Diabetes Mellitus W/O Compl Type II Or Unspec Controlled 427.61 Premature Beats Supraventricular Plan of Treatment 08/12/2018 - Jamin Weldon M.D.I10 Essential (primary) ryyonqrrgcscV46.0 Paroxysmal atrial qozirfzooaddZ76.5 Hyperlipidemia, lfrenfzxtxdI44.9 Aortic aneurysm of unspecified site, without ruptureNew Orders: Echocardiogram, Ordered: 08/12/18Follow up:one yr ov
[2018-09-04 03:16] VITALS: BP 136/74
== END | disposition home or self-care (01) ==
LOC: ED 22:12
DX: S70.02XA Contusion of left hip, initial encounter (principal); S00.83XA Contusion of other part of head, initial encounter; W18.09XA Striking against other object with subsequent fall, initial encounter; Y92.9 Unspecified place or not applicable; I45.10 Unspecified right bundle-branch block; Z86.73 Personal history of transient ischemic attack (TIA), and cerebral infarction without residual deficits; Z89.419 Acquired absence of unspecified great toe
CPT/HCPCS: 36415; 70450; 80053; 85025; 85610; 93005; 99282

== ENCOUNTER 2019-02-02 03:54 | Emergency (ER) | payer MEDICARE, MEDICAID ==
[2019-02-02] MEDS ORDERED: NS 0.9% 1000 ML** 1,000 ML IV ONE (04:07)
--- NOTE | 2019-02-02 04:07 | ED ---
GI/ HPI - HPI Summary HPI Summary: This patient is a 63 year old male presenting to [facility] with a chief complaint of hematuria since 2 days ago. The patient has no Hx of hematuria and is unsure if he has had any prostate problems. The patient takes Xarelto. The patient denies and fever, pain, or dysuria. - History of Current Complaint Chief Complaint: EDUrogenitalProblems Time Seen by Provider: 02/02/19 03:55 Stated Complaint: BLOOD IN URINE PER EMS Hx Obtained From: Patient Onset/Duration: Started Days Ago - Additional Pertinent History Primary Care Physician: [id number] - Allergy/Home Medications Allergies/Adverse Reactions: Allergies Allergy/AdvReac Type Severity Reaction Status Date / Time No Known Allergies Allergy Verified 12/26/14 08:05 PMH/Surg Hx/FS Hx/Imm Hx Endocrine/Hematology History: Reports: Hx Diabetes Cardiovascular History: Reports: Hx Hypercholesterolemia, Hx Hypertension, Hx Peripheral Vascular Disease, Other Cardiovascular Problems/Disorders - Afib Denies: Hx Pacemaker/ICD Respiratory History: Denies: Hx Chronic Obstructive Pulmonary Disease (COPD) History: Denies: Hx Dialysis Musculoskeletal History: Reports: Hx Arthritis - HIPS Sensory History: Reports: Hx Contacts or Glasses Denies: Hx Cataracts, Hx Eye Injury, Hx Eye Prosthesis, Hx Glaucoma, Hx Legally Blind, Hx Macular Degeneration, Hx Vision Problem, Hx Deafness, Hx Hearing Aid, Hx Hearing Problem, Other Sensory Impairments Opthamlomology History: Reports: Hx Contacts or Glasses Denies: Hx Cataracts, Hx Eye Injury, Hx Eye Prosthesis, Hx Glaucoma, Hx Legally Blind, Hx Macular Degeneration, Hx Vision Problem, Other Sensory Impairments Neurological History: Reports: Hx Transient Ischemic Attacks (TIA) Denies: Hx Dementia, Hx Developmental Delay, Hx Headaches, Hx Migraine, Hx Nerve Disease, Hx Seizures, Hx Spinal Cord Injury, Other Neuro Impairments/ Disorders Psychiatric History: Reports: Hx Depression Denies: Hx Panic Disorder - Surgical History Surgery Procedure, Year, and Place: RIGHT HIP 12/26/2014;. 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 - Social History Alcohol Use: Occasionally Alcohol Amount: states about 2 a week Hx Substance Use: No Substance Use Type: Reports: None Hx Tobacco Use: No Smoking Status (MU): Never Smoked Tobacco Review of Systems Negative: Fever Positive: hematuria. Negative: dysuria, pain All Other Systems Reviewed And Are Negative: Yes Physical Exam - Summary Physical Exam Summary: VITAL SIGNS: Reviewed. GENERAL: Patient is a well-developed and nourished MALE who is lying comfortable in the stretcher. Patient is not in any acute respiratory distress. HEAD AND FACE: No signs of trauma. No ecchymosis, hematomas or skull depressions. No sinus tenderness. EYES: PERRLA, EOMI x 2, No injected conjunctiva, no nystagmus. EARS: Hearing grossly intact. Ear canals and tympanic membranes are within normal limits. MOUTH: Oropharynx within normal limits. NECK: Supple, trachea is midline, no adenopathy, no JVD, no carotid bruit, no c- spine tenderness, neck with full ROM CHEST: Symmetric, no tenderness at palpation LUNGS: Clear to auscultation bilaterally. No wheezing or crackles. CVS: Regular rate and rhythm, S1 and S2 present, no murmurs or gallops appreciated. ABDOMEN: Soft, non-tender. No signs of distention. No rebound no guarding, and no masses palpated. Bowel sounds are normal. EXTREMITIES: FROM in all major joints, no edema, no cyanosis or clubbing. Left hemiparesis, old. NEURO: Alert and oriented x 3. No acute neurological deficits. Speech is normal and follows commands. SKIN: Dry and warm Triage Information Reviewed: Yes Vital Signs On Initial Exam: Temp Pulse Resp BP Pulse Ox 97.6 F 48 12 110/81 98 02/02/19 03:59 02/02/19 03:59 02/02/19 03:59 02/02/19 03:59 02/02/19 03:59 Vital Signs Reviewed: Yes Diagnostics - Laboratory Result Diagrams: 02/02/19 04:39 02/02/19 04:39 Lab Statement: Any lab studies that have been ordered have been reviewed, and results considered in the medical decision making process. - CT Abd/Pelvis CT Interpretation Completed By: Radiologist Summary of CT Findings: 1. A 10 mm nonobstructing left renal stone. No hydronephrosis. 2. Layering small stones in the bladder base. ED Provider has reviewed this report. GIGU Course/Dx - Course Course Of Treatment: This patient is a 63 year old male presenting to [facility] with a chief complaint of hematuria since [address] abdomen/pelvis reveals 1. A 10 mm nonobstructing left renal stone. No hydronephrosis. 2. Layering small stones in the bladder base. ED Provider has reviewed this report. A plan for treatment and discharge was discussed with the patient and he was agreeable with this plan. - Diagnoses Provider Diagnoses: Cystitis, Bladder stone Discharge - Sign-Out/Discharge Documenting (check all that apply): Patient Departure - Discharge Patient Received Moderate/Deep Sedation with Procedure: No - Discharge Plan Condition: Stable Disposition: HOME Prescriptions: Levofloxacin TAB* [Levaquin TAB*] 500 mg PO DAILY #7 tab Patient Education Materials: Bladder Stones (ED) Referrals: Caden Malik MD [Primary Care Provider] - Additional Instructions: Return to ED with any new or worsening symptoms. - Attestation Statements Document Initiated by Scribe: Yes Documenting Scribe: Timothy Hwang Provider For Whom Scribe is Documenting (Include Credential): Giles Christopher MD Scribe Attestation: Timothy Foley scribed for Giles Christopher MD on 02/02/19 at 0628. Status of Scribe Document: Ready
[2019-02-02 04:49] LABS: ABS Basophils 0.1 10^3/ul (0-0.2); ABS Eosinophils 0.2 10^3/ul (0-0.6); ABS Lymphocytes 2.3 10^3/ul (1.0-4.8); ABS Monocytes 0.6 10^3/ul (0-0.8); ABS Neutrophils 4.9 10^3/ul (1.5-7.7); Eosinophil % 2.4 %; Hematocrit 50 % (42-52); Hemoglobin 17.2 g/dL (14.0-18.0); Lymphocyte % 28.8 %; Mean Corpuscular HGB Conc 35 g/dL (31-36); Mean Corpuscular Hemoglobin 32 pg (27-31); Mean Corpuscular Volume 92 fL (80-94); Mean Platelet Volume 9.5 fL (7.4-10.4); Nucleated Red Blood Cells % 0.2; Platelet Count 167 10^3/uL (150-450); Red Blood Count 5.39 10^6 /uL (4.18-5.48); Red Cell Distribution Width 14 % (10-15); White Blood Count 8.1 10^3/uL (3.5-10.8)
[2019-02-02 04:55] LABS: Activated Partial Thrombo Time 42.2 seconds (26.0-38.0); INR 1.48 (0.82-1.09)
[2019-02-02 05:04] LABS: Albumin 3.8 g/dL (3.2-5.2); Albumin/Globulin Ratio 1.4 (1-3); BUN/Creatinine Ratio 18.9 (8-20); C Reactive Protein 1.11 mg/L (<8.01); Calcium 9.3 mg/dL (8.6-10.3); EGFR African American 103.8 (>60); EGFR Non-African American 85.8 (>60); Globulin 2.7 g/dL (2-4); Potassium 3.7 mmol/L (3.5-5.0); Total Bilirubin 0.8 mg/dL (0.2-1.0); Total Protein 6.5 g/dL (6.4-8.9)
[2019-02-02] MEDS ORDERED: Iodixanol* (CONTRAST) 320 MG/ML 100 ML SDV IV ONE (05:22)
[2019-02-02 06:23] LABS: Urine Appearance Turbid; Urine Bacteria Absent (Absent); Urine Bilirubin Negative (Negative); Urine Blood 3+ (Negative); Urine Color Amber; Urine Glucose Negative (Negative); Urine Ketones Negative (Negative); Urine Nitrite Negative (Negative); Urine Protein 1+(30 mg/dL) (Negative); Urine Red Blood Cell 3+(>10/hpf) (Absent); Urine Specific Gravity 1.032 (1.010-1.030); Urine Urobilinogen Negative (Negative); Urine White Blood Cell 3+(>20/hpf) (Absent)
[2019-02-02] MEDS ORDERED: Levofloxacin TAB* 500 MG PO ONE (06:23)
[2019-02-02 08:02] VITALS: BP 145/91
== END 2019-02-02 08:01 | disposition home or self-care (01) ==
LOC: ED 03:54
DX: N30.90 Cystitis, unspecified without hematuria (principal); N21.0 Calculus in bladder; N20.0 Calculus of kidney; E11.9 Type 2 diabetes mellitus without complications; I10 Essential (primary) hypertension; I48.91 Unspecified atrial fibrillation; I73.9 Peripheral vascular disease, unspecified; Z79.01 Long term (current) use of anticoagulants
CPT/HCPCS: 36415; 74177; 80053; 81003; 81015; 85025; 85610; 85730; 86140; 87086; 96360; 99283; Q9967

== ENCOUNTER 2019-12-23 16:02 | Inpatient (IN) ==
[2019-12-23] MEDS ORDERED: NS 0.9% 1000 ml BAG 1,000 ML IV ONE ×2 (16:45→19:22)
[2019-12-23 17:08] LABS: ABS Basophils 0.1 10^3/ul (0-0.2); ABS Eosinophils 0.2 10^3/ul (0-0.6); ABS Lymphocytes 1.2 10^3/ul (1.0-4.8); Eosinophil % 1.3 %; Hematocrit 44 % (42-52); Hemoglobin 14.8 g/dL (14.0-18.0); Lymphocyte % 10.2 %; Mean Corpuscular HGB Conc 34 g/dL (31-36); Mean Corpuscular Hemoglobin 31 pg (27-31); Mean Corpuscular Volume 93 fL (80-94); Mean Platelet Volume 9.5 fL (7.4-10.4); Platelet Count 208 10^3/uL (150-450); Red Cell Distribution Width 14 % (10-15); White Blood Count 12.2 10^3/uL (3.5-10.8)
[2019-12-23 17:15] LABS: INR 1.09 (0.82-1.09)
[2019-12-23 17:21] LABS: Albumin 3.3 g/dL (3.2-5.2); BUN/Creatinine Ratio 37.7 (8-20); Calcium 9.7 mg/dL (8.6-10.3); EGFR African American 67.7 (>60); EGFR Non-African American 55.9 (>60); Globulin 3.4 g/dL (2-4); Magnesium 1.5 mg/dL (1.9-2.7); Potassium 3.9 mmol/L (3.5-5.0); Total Bilirubin 0.9 mg/dL (0.2-1.0); Total Protein 6.7 g/dL (6.4-8.9)
[2019-12-23] MEDS ORDERED: Piperacillin/Tazobac ADVAN(*) 3.375 GM in NS 0.9% 100 ml BAG 100 ML IVPB ONE ×2 (17:37→20:39)
[2019-12-23] MEDS ORDERED: Magnesium Sulfate 2 gm BAG 2 GM/50 ML BAG IVPB ONE (17:52)
[2019-12-23 19:48] LABS: C Reactive Protein 132.88 mg/L (<8.01)
[2019-12-23] MEDS ORDERED: Al Hydrox/Mg Hydrox/Simet LIQ 30 ML UDC PO PRN (20:27)
[2019-12-23] MEDS ORDERED: Magnesium Hydroxide LIQ 30 ML UDC PO PRN (20:39)
[2019-12-23] MEDS ORDERED: Dextrose 50% Syringe 50 ml 25 GM/50 ML SYRINGE IV PUSH PRN (20:41)
[2019-12-23 20:53] LABS: Urine Appearance Cloudy; Urine Bilirubin Negative (Negative); Urine Blood 3+ (Negative); Urine Color Yellow; Urine Glucose Negative (Negative); Urine Ketones Negative (Negative); Urine Nitrite Negative (Negative); Urine Protein 1+(30 mg/dL) (Negative); Urine Specific Gravity 1.021 (1.010-1.030); Urine Urobilinogen Negative (Negative)
[2019-12-23] MEDS ORDERED: Zosyn per Pharmacy NOTE FOLLOW UP SCH (21:00)
[2019-12-23 21:01] LABS: Urine Bacteria Absent (Absent); Urine Red Blood Cell 3+(>10/hpf) (Absent); Urine Squamous Epithelial Cell Present (Absent); Urine White Blood Cell Absent (Absent)
[2019-12-23] MEDS: NS 0.9% 1000 ml BAG 1,000 ML IV SCH ×2 (22:45→23:40)
[2019-12-24] MEDS: ZOSYN 3.375 GM Q8H per EXTENDED INFUSION IV SCH ×4 (00:32→22:03)
[2019-12-24] MEDS: Senna TAB 8.6 mg TAB PO SCH ×2 (00:33→22:03)
[2019-12-24] MEDS: Enoxaparin 60 MG/0.6 ML SYR SUBCUT SCH ×3 (00:35→22:01)
[2019-12-24] MEDS ORDERED: Magnesium Sulfate 2 gm BAG 2 GM/50 ML BAG IVPB ONE (08:25)
[2019-12-24] MEDS: NS 0.9% 1000 ml BAG 1,000 ML IV SCH (10:59)
[2019-12-24 11:01] LABS: ABS Eosinophils 0.1 10^3/ul (0-0.6); ABS Lymphocytes 0.9 10^3/ul (1.0-4.8); ABS Monocytes 0.9 10^3/ul (0-0.8); Eosinophil % 1.3 %; Hematocrit 40 % (42-52); Hemoglobin 13.8 g/dL (14.0-18.0); Lymphocyte % 8.6 %; Mean Corpuscular HGB Conc 34 g/dL (31-36); Mean Corpuscular Hemoglobin 32 pg (27-31); Mean Corpuscular Volume 93 fL (80-94); Mean Platelet Volume 9.6 fL (7.4-10.4); Platelet Count 178 10^3/uL (150-450); Red Blood Count 4.31 10^6 /uL (4.18-5.48); Red Cell Distribution Width 13 % (10-15); White Blood Count 10.6 10^3/uL (3.5-10.8)
[2019-12-24 11:20] LABS: Albumin 2.9 g/dL (3.2-5.2); BUN/Creatinine Ratio 27.4 (8-20); Calcium 8.6 mg/dL (8.6-10.3); EGFR African American 85.7 (>60); EGFR Non-African American 70.8 (>60); Magnesium 1.5 mg/dL (1.9-2.7); Potassium 3.6 mmol/L (3.5-5.0); Total Bilirubin 1.1 mg/dL (0.2-1.0); Total Protein 5.9 g/dL (6.4-8.9)
[2019-12-24 14:18] LABS: C Reactive Protein 100.69 mg/L (<8.01)
[2019-12-25] MEDS: ZOSYN 3.375 GM Q8H per EXTENDED INFUSION IV SCH ×3 (06:15→23:25)
[2019-12-25] MEDS: Enoxaparin 60 MG/0.6 ML SYR SUBCUT SCH (07:28)
[2019-12-25] MEDS: NS 0.9% 1000 ml BAG 1,000 ML IV SCH (10:58)
[2019-12-25 13:41] LABS: Calcium 8.5 mg/dL (8.6-10.3); Magnesium 1.4 mg/dL (1.9-2.7); Total Bilirubin 1.1 mg/dL (0.2-1.0)
[2019-12-25 13:47] LABS: Albumin/Globulin Ratio 1.2 (1-3); BUN/Creatinine Ratio 16.8 (8-20); C Reactive Protein 101.19 mg/L (<8.01); EGFR African American 97.2 (>60); EGFR Non-African American 80.3 (>60); Globulin 2.6 g/dL (2-4); Total Protein 5.6 g/dL (6.4-8.9)
[2019-12-25 15:25] LABS: Indirect Bilirubin 0.9 mg/dL (0.3-1.0)
[2019-12-25] MEDS: Magnesium Sulfate 2 gm BAG 2 GM/50 ML BAG IVPB SCH ×2 (16:50→20:51)
[2019-12-25] MEDS: Senna TAB 8.6 mg TAB PO SCH (20:53)
[2019-12-26] MEDS: NS 0.9% 1000 ml BAG 1,000 ML IV SCH ×2 (03:20→14:00)
[2019-12-26] MEDS: ZOSYN 3.375 GM Q8H per EXTENDED INFUSION IV SCH (06:22)
[2019-12-26] MEDS ORDERED: Magnesium Sulfate 2 gm BAG 2 GM/50 ML BAG IVPB ONE (17:07)
[2019-12-26] MEDS: Amoxicillin/Clavul 875/125 TAB (Augmentin 875 tab) PO SCH (21:16)
[2019-12-26] MEDS: Senna TAB 8.6 mg TAB PO SCH (21:17)
[2019-12-27] MEDS: NS 0.9% 1000 ml BAG 1,000 ML IV SCH ×2 (00:58→11:04)
[2019-12-27 06:23] LABS: ABS Eosinophils 0.2 10^3/ul (0-0.6); ABS Lymphocytes 1.2 10^3/ul (1.0-4.8); ABS Monocytes 0.9 10^3/ul (0-0.8); Eosinophil % 1.7 %; Hematocrit 40 % (42-52); Hemoglobin 13.6 g/dL (14.0-18.0); Lymphocyte % 12.8 %; Mean Corpuscular HGB Conc 34 g/dL (31-36); Mean Corpuscular Hemoglobin 32 pg (27-31); Mean Corpuscular Volume 94 fL (80-94); Mean Platelet Volume 8.9 fL (7.4-10.4); Nucleated Red Blood Cells % 0.1; Platelet Count 229 10^3/uL (150-450); Red Blood Count 4.27 10^6 /uL (4.18-5.48); Red Cell Distribution Width 14 % (10-15); White Blood Count 9.8 10^3/uL (3.5-10.8)
[2019-12-27 06:41] LABS: BUN/Creatinine Ratio 13.8 (8-20); C Reactive Protein 121.29 mg/L (<8.01); Calcium 8.2 mg/dL (8.6-10.3); EGFR African American 107.6 (>60); EGFR Non-African American 88.9 (>60); Magnesium 1.8 mg/dL (1.9-2.7); Potassium 3.4 mmol/L (3.5-5.0)
[2019-12-27] MEDS ORDERED: Magnesium Sulfate IV 1GM/100ML 1 GM/100 ML BAG IV ONE (07:12)
[2019-12-27] MEDS: Amoxicillin/Clavul 875/125 TAB (Augmentin 875 tab) PO SCH (08:32)
[2019-12-27] MEDS ORDERED: Potassium Chlor 20 meq TAB.ER PO ONE (11:00)
[2019-12-27 11:07] VITALS: BP 111/71
== END 2019-12-27 16:00 | DRG 445 ==
LOC: ED 16:02 → MED 20:27
PROVIDERS: ADMIT Internal Medicine; ATTEND Hospitalist

== ENCOUNTER 2021-05-21 15:32 | Inpatient (IN) ==
[2021-05-21] MEDS ORDERED: NS 0.9% 1000 ml BAG 1,000 ML IV ONE ×2 (16:59→18:01)
[2021-05-21] MEDS ORDERED: Ondansetron 4 mg VIAL 2 MG/ML 2 ml VIAL IV ONE (17:08)
[2021-05-21 17:24] LABS: Hematocrit 45 % (42-52); Hemoglobin 14.7 g/dL (14.0-18.0); Mean Corpuscular HGB Conc 33 g/dL (31-36); Mean Corpuscular Hemoglobin 31 pg (27-31); Mean Corpuscular Volume 93 fL (80-94); Mean Platelet Volume 8.1 fL (7.4-10.4); Platelet Count 365 10^3/uL (150-450); Red Blood Count 4.79 10^6 /uL (4.18-5.48); Red Cell Distribution Width 15 % (10-15); White Blood Count 23.7 10^3/uL (3.5-10.8)
[2021-05-21 17:44] LABS: Albumin 3.9 g/dL (3.2-5.2); Albumin/Globulin Ratio 1.1 (1-3); Calcium 9.8 mg/dL (8.6-10.3); Globulin 3.5 g/dL (2-4); Magnesium 1.9 mg/dL (1.9-2.7); Total Bilirubin 0.5 mg/dL (0.2-1.0); Total Protein 7.4 g/dL (6.4-8.9)
[2021-05-21 17:45] LABS: ABS Basophils 0.1 10^3/ul (0-0.2); ABS Lymphocytes 1.1 10^3/ul (1.0-4.8); ABS Monocytes 1.2 10^3/ul (0-0.8); ABS Neutrophils 21.3 10^3/ul (1.5-7.7); Lymphocyte % 4.7 %
[2021-05-21 17:56] LABS: Potassium 6.3 mmol/L (3.5-5.0)
[2021-05-21] MEDS ORDERED: CALCIUM GLUCONATE 1GM/50ML NS 1 GM/50 ML BAG IV ONE (18:04)
[2021-05-21] MEDS ORDERED: Piperacillin/Tazobac ADVAN 3.375 GM in NS 0.9% 100 ml BAG 100 ML IV ONE (18:06)
[2021-05-21] MEDS ORDERED: Dextrose 50% Syringe 50 ml 25 GM/50 ML SYRINGE IV PUSH ONE ×2 (18:16→19:22)
[2021-05-21] MEDS ORDERED: Albuterol 2.5mg/3 ml (0.083%) NEB.SOLN INH ONE (19:20)
[2021-05-21 23:42] LABS: Rapid COVID-19 Molecular Undetected (Undetected)
[2021-05-22] MEDS ORDERED: Dextrose 50% Syringe 50 ml 25 GM/50 ML SYRINGE IV PUSH ONE (00:41)
[2021-05-22 01:59] LABS: Potassium 5.6 mmol/L (3.5-5.0)
[2021-05-22] MEDS ORDERED: Piperacillin/Tazobac ADVAN 3.375 GM in NS 0.9% 100 ml BAG 100 ML IV SCH (02:00)
[2021-05-22] MEDS ORDERED: D10W 1000 ml BAG 1,000 ML IV SCH (05:00)
[2021-05-22 08:20] LABS: INR 1.22 (0.86-1.15)
[2021-05-22] MEDS ORDERED: Ondansetron 4 mg VIAL 2 MG/ML 2 ml VIAL IV PRN (09:31)
[2021-05-22] MEDS ORDERED: Dextrose 50% Syringe 50 ml 25 GM/50 ML SYRINGE IV PUSH PRN (09:35)
[2021-05-22] MEDS ORDERED: fentaNYL 100 mcg/2 ml 50 MCG/ML VIAL ONE (09:36)
[2021-05-22] MEDS: Piperacillin/Tazobac ADVAN 3.375 GM in NS 0.9% 100 ml BAG 100 ML IV SCH ×2 (11:08→21:26)
[2021-05-22 12:31] LABS: Urine Appearance Cloudy; Urine Specific Gravity > 1.060 (1.002-1.030)
[2021-05-22 12:32] LABS: Urine Color Red
[2021-05-22 12:39] LABS: Urine Bacteria Absent (Absent); Urine Red Blood Cell 3+(>10/hpf) (Absent); Urine White Blood Cell 1+(6-10/hpf) (Absent)
[2021-05-22 16:59] LABS: Calcium 8.9 mg/dL (8.6-10.3); Potassium 5.3 mmol/L (3.5-5.0)
[2021-05-22] MEDS: Senna TAB 8.6 mg TAB PO SCH (21:21)
[2021-05-22] MEDS: NS 0.9% 1000 ml BAG 1,000 ML IV SCH (23:02)
[2021-05-23 06:41] LABS: INR 1.15 (0.86-1.15)
[2021-05-23 06:46] LABS: ABS Basophils 0.1 10^3/ul (0-0.2); ABS Lymphocytes 1.4 10^3/ul (1.0-4.8); ABS Monocytes 1.1 10^3/ul (0-0.8); Eosinophil % 0.3 %; Hematocrit 37 % (42-52); Hemoglobin 12.7 g/dL (14.0-18.0); Lymphocyte % 11.5 %; Mean Corpuscular HGB Conc 34 g/dL (31-36); Mean Corpuscular Hemoglobin 32 pg (27-31); Mean Corpuscular Volume 92 fL (80-94); Mean Platelet Volume 8.5 fL (7.4-10.4); Platelet Count 253 10^3/uL (150-450); Red Blood Count 4.01 10^6 /uL (4.18-5.48); Red Cell Distribution Width 15 % (10-15); White Blood Count 12.6 10^3/uL (3.5-10.8)
[2021-05-23 06:50] LABS: Albumin 3.1 g/dL (3.2-5.2); Albumin/Globulin Ratio 1.2 (1-3); Calcium 8.4 mg/dL (8.6-10.3); Globulin 2.6 g/dL (2-4); Total Bilirubin 0.8 mg/dL (0.2-1.0); Total Protein 5.7 g/dL (6.4-8.9)
[2021-05-23] MEDS: NS 0.9% 1000 ml BAG 1,000 ML IV SCH ×2 (07:36→17:06)
[2021-05-23] MEDS: Piperacillin/Tazobac ADVAN 3.375 GM in NS 0.9% 100 ml BAG 100 ML IV SCH ×2 (10:34→22:05)
[2021-05-23] MEDS: Heparin 5000 UNITS/ML 1 mL VIAL SUBCUT SCH ×2 (17:03→22:08)
[2021-05-23] MEDS: Senna TAB 8.6 mg TAB PO SCH (22:08)
[2021-05-24] MEDS: Heparin 5000 UNITS/ML 1 mL VIAL SUBCUT SCH ×3 (06:20→21:25)
[2021-05-24] MEDS: Piperacillin/Tazobac ADVAN 3.375 GM in NS 0.9% 100 ml BAG 100 ML IV SCH ×2 (09:26→21:27)
[2021-05-24 10:43] LABS: ABS Basophils 0.1 10^3/ul (0-0.2); ABS Lymphocytes 1.1 10^3/ul (1.0-4.8); ABS Monocytes 0.9 10^3/ul (0-0.8); ABS Neutrophils 8.8 10^3/ul (1.5-7.7); Eosinophil % 0.2 %; Hematocrit 36 % (42-52); Hemoglobin 12.4 g/dL (14.0-18.0); Lymphocyte % 10.2 %; Mean Corpuscular HGB Conc 34 g/dL (31-36); Mean Corpuscular Hemoglobin 32 pg (27-31); Mean Corpuscular Volume 92 fL (80-94); Mean Platelet Volume 8.4 fL (7.4-10.4); Platelet Count 204 10^3/uL (150-450); Red Blood Count 3.93 10^6 /uL (4.18-5.48); Red Cell Distribution Width 15 % (10-15); White Blood Count 10.8 10^3/uL (3.5-10.8)
[2021-05-24 11:00] LABS: Calcium 8.3 mg/dL (8.6-10.3); Potassium 3.5 mmol/L (3.5-5.0)
[2021-05-24] MEDS ORDERED: NORMOSOL-R pH 7.4 1000 mL BAG 1,000 ML IV SCH (14:00)
[2021-05-24] MEDS ORDERED: Sodium Bicarb 8.4% Vial 50 ML 75 MEQ in NS 0.45% 1000 ml BAG 925 ML IV SCH (18:00)
[2021-05-24] MEDS: Senna TAB 8.6 mg TAB PO SCH (21:25)
[2021-05-25] MEDS: Heparin 5000 UNITS/ML 1 mL VIAL SUBCUT SCH ×3 (05:25→20:33)
[2021-05-25] MEDS: Piperacillin/Tazobac ADVAN 3.375 GM in NS 0.9% 100 ml BAG 100 ML IV SCH (10:10)
[2021-05-25 12:09] LABS: Calcium 8.2 mg/dL (8.6-10.3); Potassium 3.1 mmol/L (3.5-5.0)
[2021-05-25] MEDS ORDERED: Potassium Chlor 20 meq TAB.ER PO ONE (12:15)
[2021-05-25] MEDS: NS 0.9% 1000 ml BAG 1,000 ML IV SCH (15:34)
[2021-05-25] MEDS: Senna TAB 8.6 mg TAB PO SCH (20:31)
[2021-05-26] MEDS: NS 0.9% 1000 ml BAG 1,000 ML IV SCH (04:36)
[2021-05-26] MEDS: Heparin 5000 UNITS/ML 1 mL VIAL SUBCUT SCH ×2 (06:19→13:07)
[2021-05-26 07:10] LABS: Potassium 3.6 mmol/L (3.5-5.0)
[2021-05-26 11:07] VITALS: BP 129/74
== END 2021-05-26 13:50 | DRG 853 ==
LOC: ED 15:32 → MED 05-22 12:03 → SUATTDRO 05-22 12:03 → MED 05-22 13:31
PROVIDERS: ADMIT Hospitalist; ATTEND Internal Medicine

== ENCOUNTER 2023-06-25 19:57 | Inpatient (IN) ==
[2023-06-25 20:32] LABS: Hematocrit 51.4 % (38-53); Hemoglobin 16.8 g/dL (13.2-16.3); Mean Corpuscular Hemoglobin 28.9 pg (27-33); Mean Corpuscular Hgb Conc 32.8 g/dL (31-36); Mean Corpuscular Volume 88.1 fL (80-97); Mean Platelet Volume 8.9 fL (7.5-11.2); Platelet Count 490 10^3/uL (150-450); Red Blood Count 5.83 10^6/uL (4.06-5.63); Red Cell Distribution Width 14.6 % (12-17); White Blood Count 23.2 10^3/uL (3.6-10.2)
[2023-06-25 20:41] LABS: INR 1.17 (0.83-1.13)
[2023-06-25] MEDS ORDERED: Lactated Ringers 1000 ml BAG 1,000 ML IV ONE ×2 (20:43→21:59)
[2023-06-25 20:57] LABS: ABS Basophils 0.1 10^3/uL (0.0-0.1); ABS Lymphocytes 1.3 10^3/uL (1.0-4.8); ABS Monocytes 1.5 10^3/uL (0.0-1.1); ABS Neutrophils 20.3 10^3/uL (1.5-7.6); ABS Nucleated RBC 0.03 10^3/ul; Albumin 3.6 g/dL (3.2-5.2); Albumin/Globulin Ratio 0.9 (1-3); C Reactive Protein 59.31 mg/L (<8.01); Calcium 9.2 mg/dL (8.6-10.3); Creatinine, Serum 6.18 mg/dL (0.67-1.17); Lymphocyte % 5.5 %; Nucleated Red Blood Cells % 0.1 %/100WBC (0.0-0.8); Potassium 6.8 mmol/L (3.5-5.0); Total Bilirubin 0.6 mg/dL (0.2-1.0); Total Protein 7.6 g/dL (6.4-8.9); eGFR CKD-EPI 9.4 (>60)
[2023-06-25] MEDS ORDERED: CALCIUM GLUCONATE 1GM/50ML NS 1 GM/50 ML BAG IV ONE (20:58)
[2023-06-25] MEDS ORDERED: Piperacillin/Tazobac 3.375 BAG 3.375 GM/100 ML BAG IV ONE (20:58)
[2023-06-25] MEDS ORDERED: Dextrose 50% Syringe 50 ml 25 GM/50 ML SYRINGE IV PUSH ONE (21:00)
[2023-06-25] MEDS ORDERED: SODIUM ZIRCONIUM CYCLOSILICATE 10 GM PACKET PO ONE (21:09)
[2023-06-25] MEDS ORDERED: Albuterol 2.5mg/3 ml (0.083%) NEB.SOLN INH ONE (21:19)
[2023-06-25] MEDS ORDERED: Ondansetron 4 mg VIAL 2 MG/ML 2 ml VIAL IV PRN (21:25)
[2023-06-25 22:22] LABS: Creatinine, Serum 6.24 mg/dL (0.67-1.17); Potassium 6.1 mmol/L (3.5-5.0); eGFR CKD-EPI 9.3 (>60)
[2023-06-25 22:27] LABS: High Sensitivity Troponin 1 Hr 35 pg/mL (<20)
[2023-06-26 02:12] LABS: Urine Appearance Turbid; Urine Bacteria 2+ (Absent); Urine Bilirubin Negative (Negative); Urine Blood 2+ (Negative); Urine Color Red; Urine Glucose 2+(150 mg/dL) (Negative); Urine Ketones Negative (Negative); Urine Nitrite Negative (Negative); Urine Protein 3+(>=500 mg/dL) (Negative); Urine Red Blood Cell 3+(>10/hpf) (Absent); Urine Squamous Epithelial Cell Present (Absent); Urine Urobilinogen Negative (Negative); Urine White Blood Cell 2+(11-20/hpf) (Absent)
[2023-06-26 02:32] LABS: Calcium 8.4 mg/dL (8.6-10.3); Creatinine, Serum 5.96 mg/dL (0.67-1.17); eGFR CKD-EPI 9.8 (>60)
[2023-06-26] MEDS ORDERED: Calcium Gluconate 1 GM/10 ML VIAL (in Pyxis) IV PUSH ONE (03:12)
[2023-06-26] MEDS ORDERED: Dextrose 50% Syringe 50 ml 25 GM/50 ML SYRINGE IV PUSH ONE ×2 (03:13)
[2023-06-26] MEDS ORDERED: Piperacillin/Tazobac 3.375 BAG 3.375 GM/100 ML BAG IV ONE (04:15)
[2023-06-26] MEDS ORDERED: Zosyn per Pharmacy NOTE FOLLOW UP SCH (05:00)
[2023-06-26] MEDS: D5W 1/2 NS 1000 ml BAG 1,000 ML IV SCH ×2 (05:34→16:13)
[2023-06-26 05:49] LABS: ABS Basophils 0.1 10^3/uL (0.0-0.1); ABS Lymphocytes 1.5 10^3/uL (1.0-4.8); ABS Monocytes 1.5 10^3/uL (0.0-1.1); ABS Neutrophils 18.1 10^3/uL (1.5-7.6); ABS Nucleated RBC 0.02 10^3/ul; Eosinophil % 0.1 %; Hematocrit 45.3 % (38-53); Hemoglobin 14.6 g/dL (13.2-16.3); Mean Corpuscular Hemoglobin 28.9 pg (27-33); Mean Corpuscular Hgb Conc 32.2 g/dL (31-36); Mean Corpuscular Volume 89.8 fL (80-97); Mean Platelet Volume 8.5 fL (7.5-11.2); Nucleated Red Blood Cells % 0.1 %/100WBC (0.0-0.8); Platelet Count 364 10^3/uL (150-450); Red Blood Count 5.04 10^6/uL (4.06-5.63); Red Cell Distribution Width 14.9 % (12-17); White Blood Count 21.2 10^3/uL (3.6-10.2)
[2023-06-26] MEDS ORDERED: Dextrose 50% Syringe 50 ml 25 GM/50 ML SYRINGE IV PUSH PRN (06:20)
[2023-06-26 06:31] LABS: Anion Gap 14 mmol/L (2-16); Blood Urea Nitrogen 123 mg/dL (6-24); CO2 Carbon Dioxide 15 mmol/L (22-32); Calcium 8.7 mg/dL (8.6-10.3); Chloride 107 mmol/L (101-111); Creatinine, Serum 6.04 mg/dL (0.67-1.17); Glucose 235 mg/dL (70-100); Sodium 136 mmol/L (135-145); eGFR CKD-EPI 9.7 (>60)
[2023-06-26] MEDS ORDERED: ZOSYN 3.375 GM Q12H per EXTENDED INFUSION IV SCH (09:00)
[2023-06-26 10:50] LABS: Urine Color Red
[2023-06-26 10:53] LABS: Urine Appearance Turbid; Urine Specific Gravity 1.015 (1.002-1.030)
[2023-06-26 11:06] LABS: Calcium 8.6 mg/dL (8.6-10.3); Creatinine, Serum 6.1 mg/dL (0.67-1.17); Magnesium 2.2 mg/dL (1.9-2.7); Potassium 5.1 mmol/L (3.5-5.0); eGFR CKD-EPI 9.5 (>60)
[2023-06-26 12:16] LABS: Urine Bacteria Absent (Absent); Urine Red Blood Cell 3+(>10/hpf) (Absent); Urine White Blood Cell Trace(0-5/hpf) (Absent)
[2023-06-26] MEDS ORDERED: Sulfur Hexaflouride MICROSPHR 25 MG VIAL ONE (13:32)
[2023-06-26 15:07] LABS: Calcium 8.3 mg/dL (8.6-10.3); Creatinine, Serum 6.13 mg/dL (0.67-1.17); eGFR CKD-EPI 9.5 (>60)
[2023-06-26 15:14] LABS: Potassium 5.4 mmol/L (3.5-5.0)
[2023-06-26] MEDS ORDERED: Vancomycin per Pharmacy 1 EA NOTE FOLLOW UP SCH (16:00)
[2023-06-26] MEDS ORDERED: Vancomycin 1,250 MG in NS 0.9% 250 ml 250 ML IVPB ONE (16:00)
[2023-06-26] MEDS: cefTRIAXone 2 gm/50 mL D5W 2 GM/50 ML BAG IV SCH (16:21)
[2023-06-26] MEDS ORDERED: ACYCLOVIR IVPB SCH (17:00)
[2023-06-26] MEDS ORDERED: NS 0.9% IVPB SCH (17:00)
[2023-06-26 18:58] LABS: Calcium 8.2 mg/dL (8.6-10.3); Creatinine, Serum 6.16 mg/dL (0.67-1.17); Potassium 4.9 mmol/L (3.5-5.0); eGFR CKD-EPI 9.4 (>60)
[2023-06-26] MEDS: Ampicillin ADVAN 2 GM in NS 0.9% 100 ML 100 ML IVPB SCH (21:53)
[2023-06-27] MEDS: D5W 1/2 NS 1000 ml BAG 1,000 ML IV SCH ×2 (02:46→18:30)
[2023-06-27] MEDS: cefTRIAXone 2 gm/50 mL D5W 2 GM/50 ML BAG IV SCH (02:46)
[2023-06-27] MEDS ORDERED: Vancomycin Random Level NOTE FOLLOW UP ONE (06:00)
[2023-06-27] MEDS: Ampicillin ADVAN 2 GM in NS 0.9% 100 ML 100 ML IVPB SCH (08:28)
[2023-06-27] MEDS ORDERED: AMPICILLIN ADVAN IVPB SCH (09:00)
[2023-06-27] MEDS ORDERED: NS 0.9% IVPB SCH (09:00)
[2023-06-27 09:16] LABS: Hematocrit 47.7 % (38-53); Hemoglobin 15.6 g/dL (13.2-16.3); Mean Corpuscular Hgb Conc 32.7 g/dL (31-36); Mean Corpuscular Volume 88.8 fL (80-97); Mean Platelet Volume 8.7 fL (7.5-11.2); Platelet Count 341 10^3/uL (150-450); Red Blood Count 5.37 10^6/uL (4.06-5.63); Red Cell Distribution Width 14.8 % (12-17); White Blood Count 18.8 10^3/uL (3.6-10.2)
[2023-06-27 09:25] LABS: ABS Basophils 0.1 10^3/uL (0.0-0.1); ABS Eosinophils 0.1 10^3/uL (0.0-0.5); ABS Lymphocytes 1.4 10^3/uL (1.0-4.8); ABS Monocytes 1.6 10^3/uL (0.0-1.1); ABS Neutrophils 15.6 10^3/uL (1.5-7.6); ABS Nucleated RBC 0.04 10^3/ul; Eosinophil % 0.7 %; Lymphocyte % 7.2 %; Nucleated Red Blood Cells % 0.2 %/100WBC (0.0-0.8)
[2023-06-27 09:43] LABS: Albumin 3.3 g/dL (3.2-5.2); Albumin/Globulin Ratio 0.9 (1-3); Calcium 8.5 mg/dL (8.6-10.3); Creatinine, Serum 6.4 mg/dL (0.67-1.17); Globulin 3.6 g/dL (2-4); Magnesium 2.1 mg/dL (1.9-2.7); Phosphorus 7.2 mg/dL (2.5-5.0); Potassium 5.2 mmol/L (3.5-5.0); Total Bilirubin 0.3 mg/dL (0.2-1.0); Total Protein 6.9 g/dL (6.4-8.9)
[2023-06-27 09:47] LABS: Vancomycin Random 10.8 mcg/mL
[2023-06-27 09:52] LABS: INR 1.23 (0.83-1.13)
[2023-06-27 10:07] LABS: Body Fluid Source Cerebral Spinal
[2023-06-27 10:19] LABS: CSF Glucose 111 mg/dL (40-70)
[2023-06-27 10:49] LABS: Body Fluid Appearance Clear; Body Fluid Color Colorless; CSF Tube # 4
[2023-06-27 12:41] LABS: Body Fluid Mono 51 %; Body Fluid Total Cells Counted 47; CSF Body Fluid WBC 3 /mcL
[2023-06-27] MEDS ORDERED: SODIUM ZIRCONIUM CYCLOSILICATE 5 GM PACKET PO ONE (14:25)
[2023-06-28] MEDS: D5W 1/2 NS 1000 ml BAG 1,000 ML IV SCH (05:27)
[2023-06-28 06:17] LABS: Hemoglobin 13.7 g/dL (13.2-16.3); Mean Corpuscular Hemoglobin 29.1 pg (27-33); Mean Corpuscular Hgb Conc 31.2 g/dL (31-36); Mean Corpuscular Volume 93.2 fL (80-97); Mean Platelet Volume 8.5 fL (7.5-11.2); Platelet Count 332 10^3/uL (150-450); Red Blood Count 4.72 10^6/uL (4.06-5.63); Red Cell Distribution Width 15.6 % (12-17); White Blood Count 17.6 10^3/uL (3.6-10.2)
[2023-06-28 06:18] LABS: ABS Basophils 0.1 10^3/uL (0.0-0.1); ABS Eosinophils 0.2 10^3/uL (0.0-0.5); ABS Lymphocytes 1.4 10^3/uL (1.0-4.8); ABS Monocytes 1.7 10^3/uL (0.0-1.1); ABS Neutrophils 14.3 10^3/uL (1.5-7.6); Eosinophil % 0.9 %; Lymphocyte % 8.1 %
[2023-06-28 07:31] LABS: Calcium 6.6 mg/dL (8.6-10.3); Creatinine, Serum 5.39 mg/dL (0.67-1.17); Magnesium 1.7 mg/dL (1.9-2.7); Potassium 4.6 mmol/L (3.5-5.0); eGFR CKD-EPI 11.1 (>60)
[2023-06-28] MEDS ORDERED: Sodium Bicarbonate 8.4% SYR 50 ml SYRINGE IV ONE (07:34)
[2023-06-28] MEDS ORDERED: Sodium Bicarb 8.4% Vial 50 ML 150 MEQ in D5W 1000 ml BAG 850 ML IV SCH (18:00)
[2023-06-28 19:04] LABS: Blood Urea Nitrogen 90 mg/dL (6-24); Chloride 125 mmol/L (101-111); Creatinine, Serum 3.92 mg/dL (0.67-1.17); Glucose 86 mg/dL (70-100); Sodium 145 mmol/L (135-145); eGFR CKD-EPI 16.2 (>60)
[2023-06-28 19:07] LABS: Anion Gap 9 mmol/L (2-16); CO2 Carbon Dioxide 11 mmol/L (22-32); Calcium 4.9 mg/dL (8.6-10.3)
[2023-06-28 22:11] LABS: Potassium, Whole Blood 4.8 mmol/L (3.4-4.5)
[2023-06-28] MEDS: CALCIUM GLUCONATE 1GM/50ML NS 1 GM/50 ML BAG IV SCH ×2 (22:40→23:57)
[2023-06-29 04:51] LABS: Hematocrit 43.7 % (38-53); Hemoglobin 14.5 g/dL (13.2-16.3); Mean Corpuscular Hemoglobin 29.2 pg (27-33); Mean Corpuscular Hgb Conc 33.3 g/dL (31-36); Mean Corpuscular Volume 87.9 fL (80-97); Mean Platelet Volume 8.9 fL (7.5-11.2); Platelet Count 333 10^3/uL (150-450); Red Blood Count 4.97 10^6/uL (4.06-5.63); Red Cell Distribution Width 14.7 % (12-17); White Blood Count 18.5 10^3/uL (3.6-10.2)
[2023-06-29 05:12] LABS: Creatinine, Serum 6.08 mg/dL (0.67-1.17); Potassium 4.1 mmol/L (3.5-5.0); eGFR CKD-EPI 9.6 (>60)
[2023-06-29 06:11] LABS: ABS Basophils 0.1 10^3/uL (0.0-0.1); ABS Eosinophils 0.2 10^3/uL (0.0-0.5); ABS Lymphocytes 1.3 10^3/uL (1.0-4.8); ABS Monocytes 1.7 10^3/uL (0.0-1.1); ABS Neutrophils 15.1 10^3/uL (1.5-7.6); ABS Nucleated RBC 0.02 10^3/ul; Eosinophil % 1.2 %; Lymphocyte % 7.1 %; Nucleated Red Blood Cells % 0.1 %/100WBC (0.0-0.8)
[2023-06-29 10:59] LABS: Anion Gap 13 mmol/L (2-16); Blood Urea Nitrogen 116 mg/dL (6-24); CO2 Carbon Dioxide 17 mmol/L (22-32); Calcium 7.6 mg/dL (8.6-10.3); Chloride 115 mmol/L (101-111); Glucose 167 mg/dL (70-100); Sodium 145 mmol/L (135-145); eGFR CKD-EPI 11.3 (>60)
[2023-06-29] MEDS ORDERED: Polyethylene Glycol 3350 17 GM PACKET PO PRN (13:15)
[2023-06-29] MEDS ORDERED: Ondansetron ODT 4 mg TAB 4 MG TAB PO PRN (13:15)
[2023-06-29 14:44] LABS: Calcium 8.3 mg/dL (8.6-10.3); Creatinine, Serum 5.83 mg/dL (0.67-1.17); Potassium 4.1 mmol/L (3.5-5.0); eGFR CKD-EPI 10.1 (>60)
[2023-06-29] MEDS ORDERED: CIPROFLOXACIN 200 MG IV ONE (16:00)
[2023-06-29] MEDS ORDERED: fentaNYL 100 mcg/2 ml 50 MCG/ML VIAL ONE (16:28)
[2023-06-29] MEDS ORDERED: Acetaminophen IV 1 GM/100ML 1,000 MG/100 ML BAG IV PRN (21:18)
[2023-06-30 05:20] LABS: Hematocrit 45.7 % (38-53); Hemoglobin 14.9 g/dL (13.2-16.3); Mean Corpuscular Hemoglobin 28.6 pg (27-33); Mean Corpuscular Hgb Conc 32.7 g/dL (31-36); Mean Corpuscular Volume 87.3 fL (80-97); Mean Platelet Volume 8.9 fL (7.5-11.2); Platelet Count 414 10^3/uL (150-450); Red Blood Count 5.23 10^6/uL (4.06-5.63); Red Cell Distribution Width 14.7 % (12-17); White Blood Count 25.1 10^3/uL (3.6-10.2)
[2023-06-30 05:28] LABS: INR 1.18 (0.83-1.13)
[2023-06-30 05:49] LABS: Albumin 3.4 g/dL (3.2-5.2); Albumin/Globulin Ratio 0.9 (1-3); Calcium 9.3 mg/dL (8.6-10.3); Creatinine, Serum 6.23 mg/dL (0.67-1.17); Globulin 3.9 g/dL (2-4); Potassium 4.6 mmol/L (3.5-5.0); Total Bilirubin 0.4 mg/dL (0.2-1.0); Total Protein 7.3 g/dL (6.4-8.9); eGFR CKD-EPI 9.3 (>60)
[2023-06-30] MEDS ORDERED: NS 0.9% 1000 ml BAG 100 ML IV PRN (08:39)
[2023-06-30] MEDS ORDERED: NS 0.9% 1000 ml BAG 200 ML IV PRN (08:39)
[2023-06-30] MEDS ORDERED: Albumin Human 25% 25 GM/100 ML BTL IV PRN (08:39)
[2023-06-30] MEDS ORDERED: Lactated Ringers 1000 ml BAG 1,000 ML IV ONE (09:24)
[2023-06-30] MEDS: Heparin 1,000 UNIT/ML 10 ml (10,000 UNITS) CATHLAB/DIALYSIS DIALYSIS PRN ×3 (09:55→12:20)
[2023-06-30] MEDS: NS 0.9% 1000 ml BAG 1,000 ML IV SCH ×2 (11:24→20:37)
[2023-06-30 12:00] LABS: Hepatitis B Surface Antigen Nonreactive (Nonreactive)
[2023-06-30 12:16] LABS: Hepatitis B Surface Ab Not Immune (Immune)
[2023-07-01 04:19] LABS: Hematocrit 38.6 % (38-53); Hemoglobin 12.8 g/dL (13.2-16.3); Mean Corpuscular Volume 87.6 fL (80-97); Mean Platelet Volume 8.7 fL (7.5-11.2); Platelet Count 314 10^3/uL (150-450); Red Blood Count 4.41 10^6/uL (4.06-5.63); Red Cell Distribution Width 14.7 % (12-17); White Blood Count 18.9 10^3/uL (3.6-10.2)
[2023-07-01 04:36] LABS: Calcium 8.7 mg/dL (8.6-10.3); Creatinine, Serum 5.03 mg/dL (0.67-1.17); Magnesium 1.9 mg/dL (1.9-2.7); Potassium 3.9 mmol/L (3.5-5.0)
[2023-07-01] MEDS: NS 0.9% 1000 ml BAG 1,000 ML IV SCH ×2 (05:15→18:10)
[2023-07-01] MEDS: Heparin 1,000 UNIT/ML 10 ml (10,000 UNITS) CATHLAB/DIALYSIS DIALYSIS PRN ×3 (09:36→11:31)
[2023-07-01] MEDS ORDERED: Sodium Bicarb 8.4% Vial 50 ML 150 MEQ in D5W 1000 ml BAG 850 ML IV SCH (15:30)
[2023-07-02] MEDS: NS 0.9% 1000 ml BAG 1,000 ML IV SCH (04:10)
[2023-07-02] MEDS: Lactated Ringers 1000 ml BAG 1,000 ML IV SCH ×2 (08:30→18:33)
[2023-07-02 11:11] LABS: Urine Appearance Turbid; Urine Bilirubin Negative (Negative); Urine Blood 3+ (Negative); Urine Color Yellow; Urine Glucose 2+(150 mg/dL) (Negative); Urine Ketones Negative (Negative); Urine Nitrite Negative (Negative); Urine Protein 2+(100 mg/dL) (Negative); Urine Specific Gravity 1.009 (1.002-1.030); Urine Urobilinogen Negative (Negative)
[2023-07-02 11:20] LABS: Urine Bacteria Absent (Absent); Urine Red Blood Cell 3+(>10/hpf) (Absent); Urine White Blood Cell 3+(>20/hpf) (Absent)
[2023-07-02] MEDS: Heparin 1,000 UNIT/ML 10 ml (10,000 UNITS) CATHLAB/DIALYSIS DIALYSIS PRN ×3 (13:00→15:58)
[2023-07-02 13:49] LABS: Calcium 8.8 mg/dL (8.6-10.3); Creatinine, Serum 2.49 mg/dL (0.67-1.17); Potassium 3.5 mmol/L (3.5-5.0); eGFR CKD-EPI 27.9 (>60)
[2023-07-03 06:26] LABS: Calcium 7.9 mg/dL (8.6-10.3); Creatinine, Serum 2.35 mg/dL (0.67-1.17); Magnesium 1.4 mg/dL (1.9-2.7); Potassium 3.3 mmol/L (3.5-5.0)
[2023-07-03 07:11] LABS: ABS Basophils 0.1 10^3/uL (0.0-0.1); ABS Eosinophils 0.3 10^3/uL (0.0-0.5); ABS Lymphocytes 1.1 10^3/uL (1.0-4.8); ABS Monocytes 0.9 10^3/uL (0.0-1.1); ABS Neutrophils 11.6 10^3/uL (1.5-7.6); Hematocrit 34.5 % (38-53); Hemoglobin 11.4 g/dL (13.2-16.3); Lymphocyte % 7.6 %; Mean Corpuscular Hemoglobin 28.7 pg (27-33); Mean Corpuscular Volume 87.1 fL (80-97); Mean Platelet Volume 9.3 fL (7.5-11.2); Platelet Count 242 10^3/uL (150-450); Red Blood Count 3.96 10^6/uL (4.06-5.63); Red Cell Distribution Width 14.5 % (12-17); White Blood Count 13.9 10^3/uL (3.6-10.2)
[2023-07-03] MEDS ORDERED: Magnesium Sulfate 2 gm BAG 2 GM/50 ML BAG IVPB ONE (12:53)
[2023-07-04 06:23] LABS: Calcium 8.1 mg/dL (8.6-10.3); Creatinine, Serum 2.21 mg/dL (0.67-1.17); Potassium 3.5 mmol/L (3.5-5.0); eGFR CKD-EPI 32.3 (>60)
[2023-07-04 08:16] LABS: Magnesium 1.8 mg/dL (1.9-2.7)
[2023-07-04] MEDS: Potassium Chlor 20 meq TAB.ER PO SCH (17:23)
[2023-07-05 05:36] LABS: Calcium 8.3 mg/dL (8.6-10.3); Creatinine, Serum 2.37 mg/dL (0.67-1.17); Potassium 3.9 mmol/L (3.5-5.0); eGFR CKD-EPI 29.7 (>60)
[2023-07-05] MEDS: Potassium Chlor 20 meq TAB.ER PO SCH (09:11)
[2023-07-06 05:32] LABS: Calcium 8.1 mg/dL (8.6-10.3); Creatinine, Serum 2.23 mg/dL (0.67-1.17); Potassium 3.8 mmol/L (3.5-5.0); eGFR CKD-EPI 31.9 (>60)
[2023-07-06 09:15] VITALS: BP 119/77
[2023-07-06] MEDS: Potassium Chlor 20 meq TAB.ER PO SCH (09:25)
[2023-07-06 09:51] LABS: ABS Basophils 0.1 10^3/uL (0.0-0.1); ABS Eosinophils 0.3 10^3/uL (0.0-0.5); ABS Lymphocytes 1.3 10^3/uL (1.0-4.8); ABS Monocytes 0.8 10^3/uL (0.0-1.1); ABS Neutrophils 13.5 10^3/uL (1.5-7.6); Eosinophil % 1.6 %; Hematocrit 33.2 % (38-53); Lymphocyte % 8.2 %; Mean Corpuscular Hgb Conc 33.1 g/dL (31-36); Mean Corpuscular Volume 87.6 fL (80-97); Platelet Count 266 10^3/uL (150-450); Red Blood Count 3.79 10^6/uL (4.06-5.63); Red Cell Distribution Width 14.3 % (12-17); White Blood Count 15.9 10^3/uL (3.6-10.2)
[2023-07-06 10:57] LABS: Rapid COVID-19 Molecular Undetected (Undetected)
== END 2023-07-06 15:45 | DRG 872 ==
LOC: ED 19:57 → EDHOLD 21:25 → SUATTDRO 21:25 → ICU 22:45 → MED 07-01 16:03
PROVIDERS: ADMIT Internal Medicine; ATTEND Internal Medicine

== ENCOUNTER 2023-07-21 19:43 | Observation (INO) ==
[2023-07-21 21:51] LABS: Hematocrit 32.4 % (38-53); Hemoglobin 10.6 g/dL (13.2-16.3); Mean Corpuscular Hemoglobin 27.8 pg (27-33); Mean Corpuscular Hgb Conc 32.7 g/dL (31-36); Mean Corpuscular Volume 84.9 fL (80-97); Mean Platelet Volume 8.7 fL (7.5-11.2); Platelet Count 334 10^3/uL (150-450); Red Blood Count 3.82 10^6/uL (4.06-5.63); Red Cell Distribution Width 14.9 % (12-17); White Blood Count 29.9 10^3/uL (3.6-10.2)
[2023-07-21 22:04] LABS: INR 1.36 (0.83-1.13)
[2023-07-21 22:12] LABS: Albumin 2.9 g/dL (3.2-5.2); Albumin/Globulin Ratio 0.7 (1-3); C Reactive Protein 248.14 mg/L (<8.01); Calcium 8.3 mg/dL (8.6-10.3); Creatinine, Serum 3.03 mg/dL (0.67-1.17); Globulin 4.2 g/dL (2-4); Potassium 3.5 mmol/L (3.5-5.0); Total Protein 7.1 g/dL (6.4-8.9); eGFR CKD-EPI 22.1 (>60)
[2023-07-21 22:18] LABS: Urine Appearance Turbid; Urine Bilirubin Negative (Negative); Urine Blood 1+ (Negative); Urine Color Amber; Urine Glucose Negative (Negative); Urine Ketones Negative (Negative); Urine Nitrite Negative (Negative); Urine Protein 2+(100 mg/dL) (Negative); Urine Specific Gravity 1.013 (1.002-1.030); Urine Urobilinogen Positive (Negative)
[2023-07-21 22:36] LABS: High Sensitivity Troponin 1 Hr 38 pg/mL (<20)
[2023-07-21 22:39] LABS: Urine Bacteria Absent (Absent); Urine Red Blood Cell 1+(3-5/hpf) (Absent); Urine White Blood Cell 3+(>20/hpf) (Absent)
[2023-07-21] MEDS ORDERED: Piperacillin/Tazobac 3.375 BAG 3.375 GM/100 ML BAG IV ONE (22:51)
[2023-07-21] MEDS ORDERED: Lactated Ringers SEPSIS* BAG 2,180 ML IV ONE (22:53)
[2023-07-21 23:01] LABS: ABS Basophils 0.2 10^3/uL (0.0-0.1); ABS Eosinophils 0.1 10^3/uL (0.0-0.5); ABS Lymphocytes 1.2 10^3/uL (1.0-4.8); ABS Monocytes 1.7 10^3/uL (0.0-1.1); ABS Neutrophils 26.8 10^3/uL (1.5-7.6); ABS Nucleated RBC 0.01 10^3/ul; Eosinophil % 0.2 %; Lymphocyte % 3.9 %
[2023-07-21] MEDS ORDERED: Vancomycin 1,000 MG in NS 0.9% 250 ml 250 ML IVPB ONE (23:44)
[2023-07-22] MEDS ORDERED: NS 0.9% 1000 ml BAG 1,000 ML IV SCH (03:00)
[2023-07-22] MEDS ORDERED: Lactated Ringers SEPSIS* BAG 2,180 ML IV ONE (03:20)
[2023-07-22] MEDS ORDERED: Dextrose 50% Syringe 50 ml 25 GM/50 ML SYRINGE IV PUSH PRN (03:36)
[2023-07-22] MEDS ORDERED: Vancomycin per Pharmacy 1 EA NOTE FOLLOW UP SCH (04:00)
[2023-07-22] MEDS: Lactated Ringers 1000 ml BAG 1,000 ML IV SCH ×2 (07:31→23:18)
[2023-07-22] MEDS: Cefepime 1 GM in Dextrose 1 GM/50 ML BAG IV SCH (08:21)
[2023-07-22 09:26] LABS: Ferritin 1102.1 ng/mL (24-336)
[2023-07-22 09:27] LABS: % Iron Saturation 18 % (15-55); .Transferrin 81 mg/dL (203-362); Iron < 20 ug/dL (50-212); Total Iron Binding Capacity 113 mcg/dL (250-450); Transferrin 81 mg/dL (203-362); Unsaturated Iron Binding 93 ug/dL
[2023-07-22] MEDS ORDERED: Vancomycin Random Level NOTE FOLLOW UP ONE (12:00)
[2023-07-22 14:11] LABS: Creatinine, Serum 2.31 mg/dL (0.67-1.17); eGFR CKD-EPI 30.6 (>60)
[2023-07-22 15:13] LABS: Vancomycin Random 9.1 mcg/mL
[2023-07-22] MEDS ORDERED: Vancomycin 500 MG in NS 0.9% 250 ML IVPB ONE (17:00)
[2023-07-22] MEDS ORDERED: Vancomycin 750 MG in NS 0.9% 250 ML IVPB SCH (20:00)
[2023-07-23] MEDS ORDERED: Vancomycin Random Level NOTE FOLLOW UP ONE (06:00)
[2023-07-23 06:11] LABS: ABS Eosinophils 0.2 10^3/uL (0.0-0.5); ABS Lymphocytes 1.1 10^3/uL (1.0-4.8); ABS Monocytes 0.9 10^3/uL (0.0-1.1); ABS Neutrophils 12.8 10^3/uL (1.5-7.6); Hematocrit 30.8 % (38-53); Hemoglobin 10.2 g/dL (13.2-16.3); Lymphocyte % 7.4 %; Mean Corpuscular Hemoglobin 28.2 pg (27-33); Mean Corpuscular Hgb Conc 33.1 g/dL (31-36); Mean Corpuscular Volume 85.2 fL (80-97); Mean Platelet Volume 8.5 fL (7.5-11.2); Platelet Count 329 10^3/uL (150-450); Red Blood Count 3.61 10^6/uL (4.06-5.63); Red Cell Distribution Width 15.1 % (12-17)
[2023-07-23 06:29] LABS: Albumin 2.7 g/dL (3.2-5.2); Albumin/Globulin Ratio 0.8 (1-3); Calcium 8.1 mg/dL (8.6-10.3); Creatinine, Serum 1.78 mg/dL (0.67-1.17); Globulin 3.5 g/dL (2-4); Magnesium 1.3 mg/dL (1.9-2.7); Potassium 3.6 mmol/L (3.5-5.0); Total Bilirubin 0.7 mg/dL (0.2-1.0); Total Protein 6.2 g/dL (6.4-8.9); eGFR CKD-EPI 41.8 (>60)
[2023-07-23 06:38] LABS: INR 1.39 (0.83-1.13)
[2023-07-23 07:01] LABS: Vancomycin Random 10.3 mcg/mL
[2023-07-23] MEDS ORDERED: Magnesium Sulf 4 GM/100 ML IV 4,000 MG/100 ML BAG IVPB ONE (07:57)
[2023-07-23] MEDS: Cefepime 1 GM in Dextrose 1 GM/50 ML BAG IV SCH (09:32)
[2023-07-23 12:10] LABS: Urine Appearance Turbid; Urine Bilirubin Negative (Negative); Urine Blood 2+ (Negative); Urine Color Yellow; Urine Glucose 1+(50 mg/dL) (Negative); Urine Ketones Negative (Negative); Urine Nitrite Negative (Negative); Urine Protein 2+(100 mg/dL) (Negative); Urine Specific Gravity 1.009 (1.002-1.030); Urine Urobilinogen Negative (Negative)
[2023-07-23 12:22] LABS: Urine Bacteria 1+ (Absent); Urine Red Blood Cell 3+(>10/hpf) (Absent); Urine White Blood Cell 3+(>20/hpf) (Absent)
[2023-07-23] MEDS ORDERED: Vancomycin 750 MG in NS 0.9% 250 ML IVPB ONE (15:00)
[2023-07-23] MEDS: Lactated Ringers 1000 ml BAG 1,000 ML IV SCH (15:22)
[2023-07-24] MEDS ORDERED: Vancomycin Random Level NOTE FOLLOW UP ONE (06:00)
[2023-07-24 06:15] LABS: Hemoglobin 9.7 g/dL (13.2-16.3); Mean Corpuscular Hemoglobin 28.3 pg (27-33); Mean Corpuscular Hgb Conc 33.4 g/dL (31-36); Mean Corpuscular Volume 84.5 fL (80-97); Mean Platelet Volume 8.5 fL (7.5-11.2); Platelet Count 334 10^3/uL (150-450); Red Blood Count 3.43 10^6/uL (4.06-5.63); Red Cell Distribution Width 14.5 % (12-17); White Blood Count 12.6 10^3/uL (3.6-10.2)
[2023-07-24 06:34] LABS: Calcium 7.5 mg/dL (8.6-10.3); Creatinine, Serum 1.62 mg/dL (0.67-1.17); Potassium 3.4 mmol/L (3.5-5.0); eGFR CKD-EPI 46.8 (>60)
[2023-07-24 06:35] LABS: Vancomycin Random 9.8 mcg/mL
[2023-07-24] MEDS: Lactated Ringers 1000 ml BAG 1,000 ML IV SCH (08:07)
[2023-07-24] MEDS: Cefepime 1 GM in Dextrose 1 GM/50 ML BAG IV SCH (08:09)
[2023-07-24] MEDS ORDERED: Vancomycin 1000 MG in NS 0.9% 250 ML IVPB ONE (10:00)
[2023-07-24 14:57] VITALS: BP 118/75
[2023-07-24] MEDS ORDERED: Vancomycin Trough Check NOTE FOLLOW UP ONE (19:30)
[2023-07-25] MEDS ORDERED: Vancomycin Random Level NOTE FOLLOW UP ONE (06:00)
== END 2023-07-24 17:30 ==
LOC: ED 19:43 → EDHOLD 19:43 → SUATTDRO 07-22 01:53 → MEDTELE 07-22 16:37
PROVIDERS: ADMIT Internal Medicine; ATTEND Internal Medicine

== ENCOUNTER 2023-12-05 03:42 | Inpatient (IN) ==
[2023-12-05] MEDS: Lactated Ringers SEPSIS* BAG 2,030 ML IV ONE (04:52)
[2023-12-05 05:04] LABS: ABS Basophils 0.1 10^3/uL (0.0-0.1); ABS Eosinophils 0.2 10^3/uL (0.0-0.5); ABS Lymphocytes 1.6 10^3/uL (1.0-4.8); ABS Monocytes 1.1 10^3/uL (0.0-1.1); ABS Neutrophils 9.4 10^3/uL (1.5-7.6); ABS Nucleated RBC 0.01 10^3/ul; Eosinophil % 1.9 %; Hematocrit 37.4 % (38-53); Hemoglobin 12.2 g/dL (13.2-16.3); Lymphocyte % 12.6 %; Mean Corpuscular Hemoglobin 27.3 pg (27-33); Mean Corpuscular Hgb Conc 32.8 g/dL (31-36); Mean Corpuscular Volume 83.1 fL (80-97); Mean Platelet Volume 8.7 fL (7.5-11.2); Nucleated Red Blood Cells % 0.1 %/100WBC (0.0-0.8); Platelet Count 302 10^3/uL (150-450); Red Blood Count 4.49 10^6/uL (4.06-5.63); Red Cell Distribution Width 17.8 % (12-17); White Blood Count 12.3 10^3/uL (3.6-10.2)
[2023-12-05 05:24] LABS: Urine Appearance Extra Turbid; Urine Bilirubin Negative (Negative); Urine Blood 1+ (Negative); Urine Glucose Negative (Negative); Urine Ketones Negative (Negative); Urine Nitrite Negative (Negative); Urine Protein 2+ (>=100 mg/dL) (Negative); Urine Specific Gravity 1.017 (1.002-1.030); Urine Urobilinogen Negative (Negative); Urine pH 7.5 (5.0-8.0)
[2023-12-05 05:26] LABS: Activated Partial Thrombo Time 34.2 seconds (26.0-38.0); INR 1.47 (0.83-1.13)
[2023-12-05 05:58] LABS: Calcium 8.7 mg/dL (8.6-10.3); Creatinine, Serum 2.01 mg/dL (0.67-1.17); Potassium 4.1 mmol/L (3.5-5.0); eGFR CKD-EPI 35.9 (>60)
[2023-12-05 05:59] LABS: Albumin 3.4 g/dL (3.2-5.2); Albumin/Globulin Ratio 0.8 (1-3); C Reactive Protein 95.08 mg/L (<8.01); Globulin 4.4 g/dL (2-4); Total Bilirubin 0.4 mg/dL (0.2-1.0); Total Protein 7.8 g/dL (6.4-8.9)
[2023-12-05 06:52] LABS: High Sensitivity Troponin 1 Hr 12 pg/mL (<20)
[2023-12-05 07:01] LABS: Urine Appearance Extra Turbid; Urine Bacteria Absent /HPF (Absent); Urine Bilirubin Negative (Negative); Urine Blood 3+ (Negative); Urine Glucose Negative (Negative); Urine Ketones Negative (Negative); Urine Nitrite Negative (Negative); Urine Protein 2+ (>=100 mg/dL) (Negative); Urine Red Blood Cell 3+(>10/hpf) /HPF (0-Trace); Urine Specific Gravity 1.016 (1.002-1.030); Urine Urobilinogen Negative (Negative); Urine White Blood Cell 3+(>20/hpf) /HPF (0-Trace); Urine pH 6.5 (5.0-8.0)
[2023-12-05 07:03] LABS: Urine Bacteria Absent /HPF (Absent); Urine Red Blood Cell 3+(>10/hpf) /HPF (0-Trace); Urine White Blood Cell 3+(>20/hpf) /HPF (0-Trace)
[2023-12-05 07:37] LABS: Urine Color Red
[2023-12-05 07:37] LABS: Urine Color Yellow
[2023-12-05] MEDS: Meropenem 1 GM PREMIX(*) 1 GM/50 ML BAG IV ONE (08:00)
[2023-12-05] MEDS: Magnesium Hydroxide LIQ 30 ML UDC PO SCH (09:11)
[2023-12-05] MEDS: Meropenem 1 GM PREMIX(*) 1 GM/50 ML BAG IV SCH (22:01)
[2023-12-06 05:14] LABS: ABS Basophils 0.1 10^3/uL (0.0-0.1); ABS Eosinophils 0.3 10^3/uL (0.0-0.5); ABS Lymphocytes 1.5 10^3/uL (1.0-4.8); ABS Monocytes 0.9 10^3/uL (0.0-1.1); ABS Neutrophils 8.5 10^3/uL (1.5-7.6); ABS Nucleated RBC 0.02 10^3/ul; Eosinophil % 2.4 %; Hematocrit 33.8 % (38-53); Hemoglobin 10.8 g/dL (13.2-16.3); Lymphocyte % 13.4 %; Mean Corpuscular Hemoglobin 26.9 pg (27-33); Mean Corpuscular Volume 84.1 fL (80-97); Mean Platelet Volume 8.4 fL (7.5-11.2); Nucleated Red Blood Cells % 0.2 %/100WBC (0.0-0.8); Platelet Count 223 10^3/uL (150-450); Red Blood Count 4.01 10^6/uL (4.06-5.63); Red Cell Distribution Width 17.1 % (12-17); White Blood Count 11.3 10^3/uL (3.6-10.2)
[2023-12-06 06:30] LABS: Calcium 8.1 mg/dL (8.6-10.3); Creatinine, Serum 1.85 mg/dL (0.67-1.17); Potassium 4.1 mmol/L (3.5-5.0); eGFR CKD-EPI 39.7 (>60)
[2023-12-07 06:40] LABS: ABS Eosinophils 0.1 10^3/uL (0.0-0.5); ABS Lymphocytes 0.9 10^3/uL (1.0-4.8); ABS Monocytes 0.7 10^3/uL (0.0-1.1); ABS Neutrophils 8.8 10^3/uL (1.5-7.6); ABS Nucleated RBC 0.01 10^3/ul; Eosinophil % 0.8 %; Hematocrit 32.7 % (38-53); Hemoglobin 10.7 g/dL (13.2-16.3); Lymphocyte % 8.2 %; Mean Corpuscular Hemoglobin 26.8 pg (27-33); Mean Corpuscular Hgb Conc 32.6 g/dL (31-36); Mean Corpuscular Volume 82.3 fL (80-97); Mean Platelet Volume 8.6 fL (7.5-11.2); Platelet Count 272 10^3/uL (150-450); Red Blood Count 3.97 10^6/uL (4.06-5.63); Red Cell Distribution Width 17.7 % (12-17); White Blood Count 10.5 10^3/uL (3.6-10.2)
[2023-12-07 06:53] LABS: Calcium 8.2 mg/dL (8.6-10.3); Creatinine, Serum 2.01 mg/dL (0.67-1.17); Potassium 3.7 mmol/L (3.5-5.0); eGFR CKD-EPI 35.9 (>60)
[2023-12-07] MEDS: fentaNYL 100 mcg/2 ml 50 MCG/ML VIAL ONE (20:11)
[2023-12-08] MEDS: Amoxicillin/Clavul 875/125 TAB (Augmentin 875 tab) PO SCH (08:50)
[2023-12-08 10:45] VITALS: BP 96/70
== END 2023-12-08 11:21 | DRG 698 ==
LOC: ED 03:42 → EDHOLD 03:42 → SSU 10:11 → SUATTDRO 12-06 16:00
PROVIDERS: ADMIT Student in an Organized Health Care Education/Training Program; ATTEND Hospitalist

== ENCOUNTER 2024-01-01 22:55 | Observation (INO) ==
[2024-01-01 23:47] LABS: ABS Basophils 0.1 10^3/uL (0.0-0.1); ABS Eosinophils 0.4 10^3/uL (0.0-0.5); ABS Lymphocytes 1.6 10^3/uL (1.0-4.8); ABS Monocytes 1.1 10^3/uL (0.0-1.1); ABS Neutrophils 13.2 10^3/uL (1.5-7.6); ABS Nucleated RBC 0.01 10^3/ul; Eosinophil % 2.6 %; Hematocrit 34.4 % (38-53); Hemoglobin 11.1 g/dL (13.2-16.3); Lymphocyte % 9.5 %; Mean Corpuscular Hemoglobin 26.6 pg (27-33); Mean Corpuscular Hgb Conc 32.3 g/dL (31-36); Mean Corpuscular Volume 82.6 fL (80-97); Mean Platelet Volume 8.6 fL (7.5-11.2); Platelet Count 339 10^3/uL (150-450); Red Blood Count 4.17 10^6/uL (4.06-5.63); Red Cell Distribution Width 18.9 % (12-17); White Blood Count 16.4 10^3/uL (3.6-10.2)
[2024-01-01 23:56] LABS: INR 1.5 (0.83-1.13)
[2024-01-02 00:41] LABS: Albumin 3.3 g/dL (3.2-5.2); Albumin/Globulin Ratio 0.8 (1-3); C Reactive Protein 40.55 mg/L (<8.01); Calcium 8.4 mg/dL (8.6-10.3); Creatinine, Serum 2.36 mg/dL (0.67-1.17); Potassium 4.2 mmol/L (3.5-5.0); Total Bilirubin 0.4 mg/dL (0.2-1.0); Total Protein 7.3 g/dL (6.4-8.9); eGFR CKD-EPI 29.6 (>60)
[2024-01-02] MEDS: cefTRIAXone 2 gm/50 mL D5W 2 GM/50 ML BAG IV ONE (01:36)
[2024-01-02 02:17] LABS: Urine Appearance Extra Turbid; Urine Bilirubin Negative (Negative); Urine Blood 3+ (Negative); Urine Color Yellow; Urine Glucose Negative (Negative); Urine Ketones Negative (Negative); Urine Nitrite Negative (Negative); Urine Protein 1+ (>=30 mg/dL) (Negative); Urine Specific Gravity 1.018 (1.002-1.030); Urine Urobilinogen Negative (Negative); Urine pH 5.5 (5.0-8.0)
[2024-01-02 02:26] LABS: Urine Bacteria 3+ /HPF (Absent); Urine Red Blood Cell 2+(6-10/hpf) /HPF (0-Trace); Urine Squamous Epithelial Cell Present /HPF (Absent); Urine White Blood Cell 3+(>20/hpf) /HPF (0-Trace)
[2024-01-02] MEDS ORDERED: Polyethylene Glycol 3350 17 GM PACKET PO PRN (02:55)
[2024-01-02] MEDS ORDERED: Senna TAB 8.6 mg TAB PO PRN (02:55)
[2024-01-02] MEDS: Ondansetron 4 mg VIAL 2 MG/ML 2 ml VIAL IV PRN (04:31)
[2024-01-02] MEDS: Enoxaparin 30 MG/0.3 ML SYR SUBCUT SCH (07:18)
[2024-01-02 09:53] LABS: Hematocrit 35.5 % (38-53); Hemoglobin 11.4 g/dL (13.2-16.3); Mean Corpuscular Hemoglobin 26.5 pg (27-33); Mean Corpuscular Hgb Conc 32.3 g/dL (31-36); Mean Corpuscular Volume 82.2 fL (80-97); Mean Platelet Volume 8.4 fL (7.5-11.2); Platelet Count 336 10^3/uL (150-450); Red Blood Count 4.32 10^6/uL (4.06-5.63); Red Cell Distribution Width 18.7 % (12-17); White Blood Count 43.2 10^3/uL (3.6-10.2)
[2024-01-02 10:40] LABS: Calcium 8.6 mg/dL (8.6-10.3); Creatinine, Serum 2.33 mg/dL (0.67-1.17); Magnesium 1.4 mg/dL (1.9-2.7); Potassium 4.1 mmol/L (3.5-5.0); eGFR CKD-EPI 30.1 (>60)
[2024-01-02 10:56] LABS: ABS Basophils 0.2 10^3/uL (0.0-0.1); ABS Lymphocytes 0.7 10^3/uL (1.0-4.8); ABS Monocytes 1.4 10^3/uL (0.0-1.1); ABS Neutrophils 40.9 10^3/uL (1.5-7.6); ABS Nucleated RBC 0.03 10^3/ul; Eosinophil % 0.1 %; Lymphocyte % 1.6 %; Nucleated Red Blood Cells % 0.1 %/100WBC (0.0-0.8)
[2024-01-02] MEDS: Magnesium Sulfate 2 gm BAG 2 GM/50 ML BAG IVPB ONE (11:50)
[2024-01-02] MEDS: Meropenem 1 GM PREMIX(*) 1 GM/50 ML BAG IV SCH (13:19)
[2024-01-02 14:19] VITALS: BP 114/89
[2024-01-03] MEDS ORDERED: cefTRIAXone 1 gm/50 mL D5W 1 GM/50 ML BAG IV SCH (01:00)
== END 2024-01-02 16:00 | disposition short-term general hospital (02) ==
LOC: EDHOLD 22:55 → ED 22:55 → SSU 01-02 05:48
PROVIDERS: ADMIT Student in an Organized Health Care Education/Training Program; ATTEND Student in an Organized Health Care Education/Training Program

== ENCOUNTER 2024-02-22 22:32 | Inpatient (IN) ==
[2024-02-22] MEDS: Lactated Ringers 1000 ml BAG 1,000 ML IV ONE (23:21)
[2024-02-22 23:29] LABS: ABS Basophils 0.1 10^3/uL (0.0-0.1); ABS Eosinophils 0.3 10^3/uL (0.0-0.5); ABS Lymphocytes 1.5 10^3/uL (1.0-4.8); ABS Monocytes 0.9 10^3/uL (0.0-1.1); ABS Nucleated RBC 0.01 10^3/ul; Eosinophil % 1.8 %; Hematocrit 29.7 % (38-53); Hemoglobin 9.4 g/dL (13.2-16.3); Lymphocyte % 9.5 %; Mean Corpuscular Hemoglobin 26.1 pg (27-33); Mean Corpuscular Hgb Conc 31.8 g/dL (31-36); Mean Corpuscular Volume 82.2 fL (80-97); Mean Platelet Volume 8.7 fL (7.5-11.2); Platelet Count 398 10^3/uL (150-450); Red Blood Count 3.62 10^6/uL (4.06-5.63); Red Cell Distribution Width 19.9 % (12-17); White Blood Count 15.7 10^3/uL (3.6-10.2)
[2024-02-22 23:37] LABS: Activated Partial Thrombo Time 37.9 seconds (26.0-38.0); INR 1.88 (0.83-1.13)
[2024-02-22 23:53] LABS: Albumin 3.1 g/dL (3.2-5.2); Albumin/Globulin Ratio 0.6 (1-3); C Reactive Protein 129.91 mg/L (<8.01); Calcium 8.9 mg/dL (8.6-10.3); Creatinine, Serum 2.83 mg/dL (0.67-1.17); Globulin 5.2 g/dL (2-4); Potassium 3.6 mmol/L (3.5-5.0); Total Bilirubin 0.6 mg/dL (0.2-1.0); Total Protein 8.3 g/dL (6.4-8.9); eGFR CKD-EPI 23.8 (>60)
[2024-02-23] MEDS: Lactated Ringers 1000 ml BAG 1,000 ML IV ONE (01:21)
[2024-02-23 01:23] LABS: High Sensitivity Troponin 1 Hr 23 pg/mL (<20)
[2024-02-23] MEDS: cefTRIAXone 1 gm/50 mL D5W 1 GM/50 ML BAG IV ONE (02:09)
[2024-02-23 02:27] LABS: Urine Appearance Extra Turbid; Urine Bilirubin Negative (Negative); Urine Blood 3+ (Negative); Urine Color Yellow; Urine Glucose Negative (Negative); Urine Ketones Negative (Negative); Urine Nitrite 1+ (Negative); Urine Protein 2+ (>=100 mg/dL) (Negative); Urine Specific Gravity 1.014 (1.002-1.030); Urine Urobilinogen Negative (Negative); Urine pH 7.5 (5.0-8.0)
[2024-02-23 02:34] LABS: Urine Bacteria 3+ /HPF (Absent); Urine Red Blood Cell 3+(>10/hpf) /HPF (0-Trace); Urine White Blood Cell 3+(>20/hpf) /HPF (0-Trace)
[2024-02-23 06:15] LABS: ABS Basophils 0.1 10^3/uL (0.0-0.1); ABS Eosinophils 0.3 10^3/uL (0.0-0.5); ABS Lymphocytes 1.6 10^3/uL (1.0-4.8); ABS Monocytes 0.8 10^3/uL (0.0-1.1); ABS Neutrophils 9.3 10^3/uL (1.5-7.6); Eosinophil % 2.2 %; Hematocrit 26.6 % (38-53); Hemoglobin 8.5 g/dL (13.2-16.3); Mean Corpuscular Hemoglobin 26.1 pg (27-33); Mean Corpuscular Hgb Conc 31.8 g/dL (31-36); Mean Corpuscular Volume 82.2 fL (80-97); Mean Platelet Volume 8.8 fL (7.5-11.2); Platelet Count 339 10^3/uL (150-450); Red Blood Count 3.24 10^6/uL (4.06-5.63); Red Cell Distribution Width 19.8 % (12-17)
[2024-02-23] MEDS: Ciprofloxacin 400mg IVPREMIX 400 MG/200 ML BAG IVPB SCH ×2 (07:09→20:40)
[2024-02-23 07:31] LABS: Hematocrit 26.7 % (38-53); Hemoglobin 8.6 g/dL (13.2-16.3); Mean Corpuscular Hemoglobin 26.6 pg (27-33); Mean Corpuscular Hgb Conc 32.1 g/dL (31-36); Mean Corpuscular Volume 82.9 fL (80-97); Mean Platelet Volume 8.8 fL (7.5-11.2); Platelet Count 335 10^3/uL (150-450); Red Blood Count 3.22 10^6/uL (4.06-5.63); Red Cell Distribution Width 19.6 % (12-17); White Blood Count 12.7 10^3/uL (3.6-10.2)
[2024-02-23 08:16] LABS: Anion Gap 12 mmol/L (2-16); Blood Urea Nitrogen 64 mg/dL (6-24); CO2 Carbon Dioxide 31 mmol/L (22-32); Calcium 8.3 mg/dL (8.6-10.3); Chloride 106 mmol/L (101-111); Creatinine, Serum 2.47 mg/dL (0.67-1.17); Glucose 119 mg/dL (70-100); Magnesium 2.2 mg/dL (1.9-2.7); Sodium 149 mmol/L (135-145)
[2024-02-23] MEDS: Pantoprazole VIAL 40 MG VIAL IV SCH (09:03)
[2024-02-23] MEDS: D5W 1000 ml BAG 1,000 ML IV SCH ×2 (09:09→17:38)
[2024-02-23] MEDS: Fluconazole 200 MG IVPREMIX 200 MG/100 ML BAG IVPB SCH (09:15)
[2024-02-23] MEDS: Polyethylene Glycol 3350 17 GM PACKET PO SCH (09:19)
[2024-02-23 09:59] LABS: TSH Ultra Thyroid Stim Horm 0.92 mcIU/mL (0.34-5.60)
[2024-02-23 10:10] LABS: Vitamin B12 913 pg/mL (180-914)
[2024-02-23 12:12] LABS: Urine Appearance Turbid; Urine Bilirubin Negative (Negative); Urine Blood 3+ (Negative); Urine Color Yellow; Urine Glucose Negative (Negative); Urine Ketones Negative (Negative); Urine Nitrite 1+ (Negative); Urine Protein 1+ (>=30 mg/dL) (Negative); Urine Specific Gravity 1.013 (1.002-1.030); Urine Urobilinogen Negative (Negative)
[2024-02-23 12:17] LABS: Urine Bacteria 3+ /HPF (Absent); Urine Red Blood Cell 3+(>10/hpf) /HPF (0-Trace); Urine White Blood Cell 3+(>20/hpf) /HPF (0-Trace)
[2024-02-23] MEDS: Enoxaparin 60 MG/0.6 ML SYR SUBCUT SCH (12:20)
[2024-02-23 13:12] LABS: Urine Appearance Extra Turbid; Urine Bilirubin Negative (Negative); Urine Blood 3+ (Negative); Urine Glucose Negative (Negative); Urine Ketones Negative (Negative); Urine Nitrite 1+ (Negative); Urine Protein 2+ (>=100 mg/dL) (Negative); Urine Specific Gravity 1.013 (1.002-1.030); Urine Urobilinogen Negative (Negative); Urine pH 7.5 (5.0-8.0)
[2024-02-23 13:23] LABS: Urine Bacteria 3+ /HPF (Absent); Urine Red Blood Cell 3+(>10/hpf) /HPF (0-Trace); Urine White Blood Cell 3+(>20/hpf) /HPF (0-Trace)
[2024-02-23 13:42] LABS: Urine Color Yellow
[2024-02-23] MEDS: fentaNYL 100 mcg/2 ml 50 MCG/ML VIAL ONE (15:56)
[2024-02-23 16:40] LABS: Calcium 8.5 mg/dL (8.6-10.3); Creatinine, Serum 2.47 mg/dL (0.67-1.17); Potassium 3.6 mmol/L (3.5-5.0)
[2024-02-23] MEDS ORDERED: Zosyn per Pharmacy NOTE FOLLOW UP SCH (21:00)
[2024-02-23] MEDS: Piperacillin/Tazobac 3.375 BAG 3.375 GM/100 ML BAG IV ONE (21:30)
[2024-02-24] MEDS: ZOSYN 3.375 GM Q8H per EXTENDED INFUSION IV SCH (01:58)
[2024-02-24] MEDS ORDERED: ZOSYN 3.375 GM Q12H per EXTENDED INFUSION IV SCH (02:00)
[2024-02-24] MEDS ORDERED: cefTRIAXone 1 gm/50 mL D5W 1 GM/50 ML BAG IV SCH (02:00)
[2024-02-24 06:25] LABS: ABS Basophils 0.1 10^3/uL (0.0-0.1); ABS Eosinophils 0.4 10^3/uL (0.0-0.5); ABS Lymphocytes 1.7 10^3/uL (1.0-4.8); ABS Monocytes 0.8 10^3/uL (0.0-1.1); ABS Neutrophils 14.5 10^3/uL (1.5-7.6); Eosinophil % 2.1 %; Hematocrit 25.9 % (38-53); Hemoglobin 8.1 g/dL (13.2-16.3); Lymphocyte % 9.8 %; Mean Corpuscular Hemoglobin 25.8 pg (27-33); Mean Corpuscular Hgb Conc 31.2 g/dL (31-36); Mean Corpuscular Volume 82.7 fL (80-97); Mean Platelet Volume 8.6 fL (7.5-11.2); Platelet Count 341 10^3/uL (150-450); Red Blood Count 3.13 10^6/uL (4.06-5.63); Red Cell Distribution Width 19.8 % (12-17); White Blood Count 17.4 10^3/uL (3.6-10.2)
[2024-02-24 06:33] LABS: INR 1.59 (0.83-1.13)
[2024-02-24 07:02] LABS: Calcium 8.1 mg/dL (8.6-10.3); Creatinine, Serum 2.36 mg/dL (0.67-1.17); Magnesium 2.1 mg/dL (1.9-2.7); Potassium 3.5 mmol/L (3.5-5.0); eGFR CKD-EPI 29.6 (>60)
[2024-02-24] MEDS: fentaNYL 250 mcg/5 ml 50 MCG/ML 5 ml VIAL (250 MCG) ONE (12:40)
[2024-02-24] MEDS: Meropenem 1 GM PREMIX(*) 1 GM/50 ML BAG IV SCH (12:46)
[2024-02-24] MEDS: Lactated Ringers 1000 ml BAG 1,000 ML IV ONE (12:54)
[2024-02-24] MEDS: Acetaminophen IV 1 GM/100ML 1,000 MG/100 ML BAG IV PRN (14:05)
[2024-02-24] MEDS: Lactated Ringers 1000 ml BAG 1,000 ML IV SCH (15:10)
[2024-02-25 06:06] LABS: Hematocrit 21.5 % (38-53); Mean Corpuscular Hemoglobin 26.9 pg (27-33); Mean Corpuscular Hgb Conc 32.7 g/dL (31-36); Mean Corpuscular Volume 82.5 fL (80-97); Mean Platelet Volume 8.8 fL (7.5-11.2); Platelet Count 220 10^3/uL (150-450); Red Blood Count 2.61 10^6/uL (4.06-5.63); Red Cell Distribution Width 19.8 % (12-17); White Blood Count 22.7 10^3/uL (3.6-10.2)
[2024-02-25 06:27] LABS: Calcium 7.6 mg/dL (8.6-10.3); Creatinine, Serum 2.47 mg/dL (0.67-1.17); Magnesium 1.7 mg/dL (1.9-2.7); Potassium 3.5 mmol/L (3.5-5.0)
[2024-02-25 06:41] LABS: ABS Basophils 0.1 10^3/uL (0.0-0.1); ABS Eosinophils 0.1 10^3/uL (0.0-0.5); ABS Lymphocytes 0.9 10^3/uL (1.0-4.8); ABS Monocytes 0.7 10^3/uL (0.0-1.1); ABS Neutrophils 20.9 10^3/uL (1.5-7.6); Eosinophil % 0.5 %; Lymphocyte % 3.8 %
[2024-02-25 07:09] LABS: Albumin 2.1 g/dL (3.2-5.2)
[2024-02-25] MEDS: Magnesium Sulfate 2 gm BAG 2 GM/50 ML BAG IVPB ONE (08:40)
[2024-02-25] MEDS: Magnesium Sulfate IV 1GM/100ML 1 GM/100 ML BAG IV ONE (10:41)
[2024-02-25] MEDS ORDERED: Acetaminophen IV 1 GM/100ML 1,000 MG/100 ML BAG IV PRN (18:08)
[2024-02-25] MEDS: Acetaminophen IV 1 GM/100ML 1,000 MG/100 ML BAG IV PRN (18:25)
[2024-02-25] MEDS: Enoxaparin 80 MG/0.8 ML SYR SUBCUT SCH (21:27)
[2024-02-26 00:43] LABS: Hematocrit 24.6 % (38-53)
[2024-02-26 07:09] LABS: ABS Eosinophils 0.3 10^3/uL (0.0-0.5); ABS Lymphocytes 0.9 10^3/uL (1.0-4.8); ABS Monocytes 0.8 10^3/uL (0.0-1.1); ABS Neutrophils 9.9 10^3/uL (1.5-7.6); ABS Nucleated RBC 0.01 10^3/ul; Eosinophil % 2.2 %; Hematocrit 29.6 % (38-53); Hemoglobin 9.2 g/dL (13.2-16.3); Lymphocyte % 7.8 %; Mean Corpuscular Hemoglobin 26.5 pg (27-33); Mean Corpuscular Hgb Conc 31.1 g/dL (31-36); Mean Corpuscular Volume 85.3 fL (80-97); Mean Platelet Volume 8.6 fL (7.5-11.2); Nucleated Red Blood Cells % 0.1 %/100WBC (0.0-0.8); Platelet Count 191 10^3/uL (150-450); Red Blood Count 3.47 10^6/uL (4.06-5.63); Red Cell Distribution Width 20.6 % (12-17); White Blood Count 11.9 10^3/uL (3.6-10.2)
[2024-02-26 08:11] LABS: Anion Gap 13 mmol/L (2-16); Blood Urea Nitrogen 47 mg/dL (6-24); CO2 Carbon Dioxide 21 mmol/L (22-32); Calcium 7.8 mg/dL (8.6-10.3); Chloride 107 mmol/L (101-111); Creatinine, Serum 2.46 mg/dL (0.67-1.17); Glucose 94 mg/dL (70-100); Magnesium 2.5 mg/dL (1.9-2.7); Sodium 141 mmol/L (135-145); eGFR CKD-EPI 28.2 (>60)
[2024-02-26 08:25] LABS: Potassium, Whole Blood 3.9 mmol/L (3.4-4.5)
[2024-02-26] MEDS: Senna TAB 8.6 mg TAB PO PRN (21:32)
[2024-02-26] MEDS: Enoxaparin 80 MG/0.8 ML SYR SUBCUT SCH (21:33)
[2024-02-27 06:43] LABS: Hematocrit 30.6 % (38-53); Hemoglobin 9.2 g/dL (13.2-16.3); Mean Corpuscular Hemoglobin 26.7 pg (27-33); Mean Corpuscular Hgb Conc 30.1 g/dL (31-36); Mean Corpuscular Volume 88.7 fL (80-97); Mean Platelet Volume 8.3 fL (7.5-11.2); Platelet Count 181 10^3/uL (150-450); Red Blood Count 3.45 10^6/uL (4.06-5.63); Red Cell Distribution Width 20.9 % (12-17); White Blood Count 6.3 10^3/uL (3.6-10.2)
[2024-02-27 07:11] LABS: Calcium 7.7 mg/dL (8.6-10.3); Creatinine, Serum 2.11 mg/dL (0.67-1.17); Magnesium 2.2 mg/dL (1.9-2.7); Potassium 4.3 mmol/L (3.5-5.0); eGFR CKD-EPI 33.9 (>60)
[2024-02-27 08:33] LABS: ABS Eosinophils 0.3 10^3/uL (0.0-0.5); ABS Lymphocytes 0.9 10^3/uL (1.0-4.8); ABS Monocytes 0.6 10^3/uL (0.0-1.1); ABS Neutrophils 4.5 10^3/uL (1.5-7.6); ABS Nucleated RBC 0.01 10^3/ul; Anisocytosis 2+; Lymphocyte % 14.8 %; Nucleated Red Blood Cells % 0.2 %/100WBC (0.0-0.8)
[2024-02-28 06:11] LABS: ABS Eosinophils 0.4 10^3/uL (0.0-0.5); ABS Lymphocytes 1.2 10^3/uL (1.0-4.8); ABS Monocytes 0.7 10^3/uL (0.0-1.1); Eosinophil % 6.4 %; Hematocrit 25.4 % (38-53); Hemoglobin 8.5 g/dL (13.2-16.3); Lymphocyte % 18.8 %; Mean Corpuscular Hgb Conc 33.3 g/dL (31-36); Mean Platelet Volume 8.6 fL (7.5-11.2); Platelet Count 193 10^3/uL (150-450); Red Blood Count 3.14 10^6/uL (4.06-5.63); White Blood Count 6.3 10^3/uL (3.6-10.2)
[2024-02-28 07:38] LABS: Calcium 7.7 mg/dL (8.6-10.3); Creatinine, Serum 1.91 mg/dL (0.67-1.17); Potassium 4.2 mmol/L (3.5-5.0); eGFR CKD-EPI 38.2 (>60)
[2024-02-28] MEDS: Aspirin EC 81 mg TAB.EC (enteric coated) PO SCH (07:49)
[2024-02-28] MEDS: Enoxaparin 80 MG/0.8 ML SYR SUBCUT SCH (11:08)
[2024-02-29 05:27] LABS: Hematocrit 25.7 % (38-53); Hemoglobin 8.6 g/dL (13.2-16.3); Mean Corpuscular Hemoglobin 27.2 pg (27-33); Mean Corpuscular Hgb Conc 33.4 g/dL (31-36); Mean Corpuscular Volume 81.7 fL (80-97); Mean Platelet Volume 8.7 fL (7.5-11.2); Platelet Count 210 10^3/uL (150-450); Red Blood Count 3.15 10^6/uL (4.06-5.63); Red Cell Distribution Width 19.7 % (12-17); White Blood Count 8.9 10^3/uL (3.6-10.2)
[2024-02-29 06:00] LABS: Calcium 7.8 mg/dL (8.6-10.3); Creatinine, Serum 1.76 mg/dL (0.67-1.17); Potassium 4.5 mmol/L (3.5-5.0); eGFR CKD-EPI 42.1 (>60)
[2024-03-01 05:41] LABS: Hematocrit 24.8 % (38-53); Hemoglobin 8.1 g/dL (13.2-16.3); Mean Corpuscular Hemoglobin 26.5 pg (27-33); Mean Corpuscular Hgb Conc 32.5 g/dL (31-36); Mean Corpuscular Volume 81.5 fL (80-97); Mean Platelet Volume 8.8 fL (7.5-11.2); Platelet Count 248 10^3/uL (150-450); Red Blood Count 3.05 10^6/uL (4.06-5.63); Red Cell Distribution Width 20.1 % (12-17)
[2024-03-01 05:57] LABS: Calcium 7.8 mg/dL (8.6-10.3); Creatinine, Serum 1.87 mg/dL (0.67-1.17); Potassium 4.6 mmol/L (3.5-5.0); eGFR CKD-EPI 39.2 (>60)
[2024-03-01 06:14] LABS: ABS Basophils 0.1 10^3/uL (0.0-0.1); ABS Eosinophils 0.9 10^3/uL (0.0-0.5); ABS Lymphocytes 2.3 10^3/uL (1.0-4.8); ABS Monocytes 0.8 10^3/uL (0.0-1.1); ABS Neutrophils 6.9 10^3/uL (1.5-7.6); ABS Nucleated RBC 0.01 10^3/ul; Eosinophil % 8.5 %; Lymphocyte % 21.1 %; Nucleated Red Blood Cells % 0.1 %/100WBC (0.0-0.8)
[2024-03-01 12:39] LABS: Hematocrit 25.8 % (38-53); Hemoglobin 8.2 g/dL (13.2-16.3)
[2024-03-02 09:04] LABS: Rapid COVID-19 Molecular Undetected (Undetected)
[2024-03-02 09:50] LABS: Hematocrit 24.4 % (38-53); Hemoglobin 7.9 g/dL (13.2-16.3); Mean Corpuscular Hemoglobin 26.7 pg (27-33); Mean Corpuscular Hgb Conc 32.5 g/dL (31-36); Mean Corpuscular Volume 82.3 fL (80-97); Mean Platelet Volume 8.7 fL (7.5-11.2); Platelet Count 294 10^3/uL (150-450); Red Blood Count 2.96 10^6/uL (4.06-5.63); Red Cell Distribution Width 20.4 % (12-17); White Blood Count 14.7 10^3/uL (3.6-10.2)
[2024-03-02 10:12] LABS: Calcium 7.6 mg/dL (8.6-10.3); Creatinine, Serum 1.83 mg/dL (0.67-1.17); Potassium 4.6 mmol/L (3.5-5.0); eGFR CKD-EPI 40.2 (>60)
[2024-03-02 10:51] LABS: ABS Basophils 0.1 10^3/uL (0.0-0.1); ABS Eosinophils 1.4 10^3/uL (0.0-0.5); ABS Lymphocytes 2.1 10^3/uL (1.0-4.8); ABS Monocytes 0.9 10^3/uL (0.0-1.1); ABS Neutrophils 10.3 10^3/uL (1.5-7.6); Eosinophil % 9.4 %
[2024-03-03 06:49] LABS: Hematocrit 25.5 % (38-53); Hemoglobin 8.3 g/dL (13.2-16.3); Mean Corpuscular Hemoglobin 26.9 pg (27-33); Mean Corpuscular Hgb Conc 32.7 g/dL (31-36); Mean Corpuscular Volume 82.2 fL (80-97); Mean Platelet Volume 8.8 fL (7.5-11.2); Platelet Count 318 10^3/uL (150-450); Red Cell Distribution Width 20.4 % (12-17); White Blood Count 14.2 10^3/uL (3.6-10.2)
[2024-03-03 07:09] LABS: Creatinine, Serum 1.81 mg/dL (0.67-1.17); Potassium 4.8 mmol/L (3.5-5.0); eGFR CKD-EPI 40.7 (>60)
[2024-03-03 08:44] LABS: ABS Basophils 0.1 10^3/uL (0.0-0.1); ABS Eosinophils 1.5 10^3/uL (0.0-0.5); ABS Lymphocytes 2.1 10^3/uL (1.0-4.8); ABS Neutrophils 9.4 10^3/uL (1.5-7.6); ABS Nucleated RBC 0.01 10^3/ul; Eosinophil % 10.7 %; Lymphocyte % 14.8 %; Nucleated Red Blood Cells % 0.1 %/100WBC (0.0-0.8)
[2024-03-03 08:45] LABS: Anisocytosis 2+; Polychromasia 1+
[2024-03-04 07:54] LABS: Hematocrit 24.8 % (38-53); Hemoglobin 8.1 g/dL (13.2-16.3); Mean Corpuscular Hemoglobin 26.9 pg (27-33); Mean Corpuscular Hgb Conc 32.6 g/dL (31-36); Mean Corpuscular Volume 82.6 fL (80-97); Mean Platelet Volume 8.4 fL (7.5-11.2); Platelet Count 317 10^3/uL (150-450); Red Cell Distribution Width 20.5 % (12-17); White Blood Count 12.7 10^3/uL (3.6-10.2)
[2024-03-04 08:22] LABS: Calcium 8.1 mg/dL (8.6-10.3); Creatinine, Serum 1.65 mg/dL (0.67-1.17); Magnesium 1.9 mg/dL (1.9-2.7); eGFR CKD-EPI 45.5 (>60)
[2024-03-04 09:24] VITALS: BP 121/68
[2024-03-04 09:58] LABS: ABS Basophils 0.1 10^3/uL (0.0-0.1); ABS Eosinophils 1.8 10^3/uL (0.0-0.5); ABS Monocytes 0.9 10^3/uL (0.0-1.1); ABS Neutrophils 7.8 10^3/uL (1.5-7.6); ABS Nucleated RBC 0.01 10^3/ul; Eosinophil % 13.9 %; Lymphocyte % 15.9 %; Nucleated Red Blood Cells % 0.1 %/100WBC (0.0-0.8)
== END 2024-03-04 10:15 | DRG 698 ==
LOC: ED 22:32 → EDHOLD 22:32 → SUATTDRO 02-23 04:25 → MEDTELE 02-23 06:12 → SUATTDRO 02-24 12:00
PROVIDERS: ADMIT Internal Medicine; ATTEND Internal Medicine

== ENCOUNTER 2024-08-14 20:36 | Inpatient (IN) ==
[2024-08-14 22:11] LABS: ABS Basophils 0.1 10^3/uL (0.0-0.1); ABS Eosinophils 0.1 10^3/uL (0.0-0.5); ABS Lymphocytes 1.4 10^3/uL (1.0-4.8); ABS Monocytes 0.9 10^3/uL (0.0-1.1); ABS Neutrophils 10.5 10^3/uL (1.5-7.6); ABS Nucleated RBC 0.01 10^3/ul; Eosinophil % 0.9 %; Hematocrit 38.7 % (38-53); Hemoglobin 12.5 g/dL (13.2-16.3); Lymphocyte % 10.5 %; Mean Corpuscular Hemoglobin 28.3 pg (27-33); Mean Corpuscular Hgb Conc 32.2 g/dL (31-36); Mean Corpuscular Volume 87.8 fL (80-97); Mean Platelet Volume 9.2 fL (7.5-11.2); Platelet Count 241 10^3/uL (150-450); Red Blood Count 4.41 10^6/uL (4.06-5.63); Red Cell Distribution Width 17.5 % (12-17)
[2024-08-14 22:24] LABS: INR 2.03 (0.85-1.14)
[2024-08-14] MEDS: Meropenem 1 GM PREMIX(*) 1 GM/50 ML BAG IV ONE (22:41)
[2024-08-14] MEDS: Lactated Ringers 1000 ml BAG 1,000 ML IV ONE (22:41)
[2024-08-14 23:26] LABS: ALT 4 U/L (7-52); Albumin 3.6 g/dL (3.5-5.7); Albumin/Globulin Ratio 0.9 (1-3); Alkaline Phosphatase 117 U/L (35-149); Anion Gap 13 mmol/L (2-16); Blood Urea Nitrogen 31 mg/dL (6-24); C Reactive Protein 226.78 mg/L (<8.01); CO2 Carbon Dioxide 24 mmol/L (22-32); Calcium 8.9 mg/dL (8.6-10.3); Chloride 106 mmol/L (101-111); Creatinine, Serum 2.69 mg/dL (0.67-1.17); Globulin 4.2 g/dL (2-4); Glucose 79 mg/dL (70-100); Sodium 143 mmol/L (135-145); Total Protein 7.8 g/dL (6.4-8.9); eGFR CKD-EPI 25.3 (>60)
[2024-08-15 00:30] LABS: Potassium Redraw 3.5 mmol/L (3.5-5.0)
[2024-08-15] MEDS: Lactated Ringers 1000 ml BAG 1,000 ML IV ONE (01:41)
[2024-08-15] MEDS ORDERED: Ondansetron 4 mg VIAL 2 MG/ML 2 ml VIAL IV PRN (02:57)
[2024-08-15 03:19] LABS: Urine Appearance Extra Turbid; Urine Color Red; Urine Specific Gravity 1.019 (1.002-1.030)
[2024-08-15] MEDS ORDERED: Naloxone Nasal Spray 4 MG/0.1 ML NASAL.SPR INTRANASAL PRN (03:34)
[2024-08-15 03:50] LABS: Urine Red Blood Cell 3+(>10/hpf) /HPF (0-Trace); Urine White Blood Cell 3+(>20/hpf) /HPF (0-Trace)
[2024-08-15 04:01] LABS: Urine Appearance Turbid; Urine Color Yellow
[2024-08-15 04:02] LABS: Urine Bilirubin Negative (Negative); Urine Blood 3+ (Large) (Negative); Urine Ketones 1+ (15mg/dL) (Negative)
[2024-08-15 04:03] LABS: Urine Nitrite Negative (Negative); Urine Protein 2+ (100 mg/dL) (Negative); Urine Urobilinogen 0.2 (Negative) (Negative)
[2024-08-15 04:17] LABS: Urine Bacteria 3+ /HPF (Absent); Urine Red Blood Cell 3+(>10/hpf) /HPF (0-Trace); Urine White Blood Cell 3+(>20/hpf) /HPF (0-Trace)
[2024-08-15 04:29] LABS: Urine Bacteria 2+ (Absent)
[2024-08-15 08:25] LABS: ABS Basophils 0.1 10^3/uL (0.0-0.1); ABS Eosinophils 0.1 10^3/uL (0.0-0.5); ABS Lymphocytes 0.8 10^3/uL (1.0-4.8); ABS Monocytes 0.9 10^3/uL (0.0-1.1); ABS Neutrophils 10.7 10^3/uL (1.5-7.6); Eosinophil % 0.6 %; Hematocrit 31.5 % (38-53); Hemoglobin 10.3 g/dL (13.2-16.3); Lymphocyte % 6.5 %; Mean Corpuscular Hemoglobin 28.3 pg (27-33); Mean Corpuscular Hgb Conc 32.6 g/dL (31-36); Mean Corpuscular Volume 86.8 fL (80-97); Mean Platelet Volume 9.1 fL (7.5-11.2); Platelet Count 204 10^3/uL (150-450); Red Blood Count 3.63 10^6/uL (4.06-5.63); Red Cell Distribution Width 17.1 % (12-17); White Blood Count 12.5 10^3/uL (3.6-10.2)
[2024-08-15] MEDS: DOXYcycline 100 MG in NS 0.9% 250 ml 250 ML IVPB SCH ×2 (08:28→20:37)
[2024-08-15] MEDS: Magnesium Hydroxide LIQ 30 ML UDC PO SCH (08:31)
[2024-08-15 09:08] LABS: Calcium 7.8 mg/dL (8.6-10.3); Creatinine, Serum 2.23 mg/dL (0.67-1.17); Magnesium 1.3 mg/dL (1.9-2.7); Potassium 3.2 mmol/L (3.5-5.0); eGFR CKD-EPI 31.7 (>60)
[2024-08-15] MEDS: Magnesium Sulfate 2 gm BAG 2 GM/50 ML BAG IVPB ONE (10:39)
[2024-08-15] MEDS: Potassium Chlor 20 meq TAB.ER PO ONE (10:42)
[2024-08-15] MEDS: Magnesium Sulfate IV 1GM/100ML 1 GM/100 ML BAG IV ONE (12:00)
[2024-08-15] MEDS: Senna TAB 8.6 mg TAB PO SCH (20:37)
[2024-08-15] MEDS ORDERED: SENNOSIDES DOCUSATE SODIUM PO SCH (21:00)
[2024-08-16 06:29] LABS: ABS Eosinophils 0.2 10^3/uL (0.0-0.5); ABS Lymphocytes 1.2 10^3/uL (1.0-4.8); ABS Monocytes 0.7 10^3/uL (0.0-1.1); ABS Neutrophils 5.5 10^3/uL (1.5-7.6); ABS Nucleated RBC 0.01 10^3/ul; Eosinophil % 2.3 %; Hematocrit 32.5 % (38-53); Hemoglobin 10.6 g/dL (13.2-16.3); Lymphocyte % 15.6 %; Mean Corpuscular Hemoglobin 28.6 pg (27-33); Mean Corpuscular Hgb Conc 32.5 g/dL (31-36); Mean Platelet Volume 9.2 fL (7.5-11.2); Nucleated Red Blood Cells % 0.1 %/100WBC (0.0-0.8); Platelet Count 177 10^3/uL (150-450); Red Blood Count 3.69 10^6/uL (4.06-5.63); Red Cell Distribution Width 16.9 % (12-17); White Blood Count 7.6 10^3/uL (3.6-10.2)
[2024-08-16 06:31] LABS: INR 1.45 (0.85-1.14)
[2024-08-16 07:00] LABS: Calcium 8.3 mg/dL (8.6-10.3); Creatinine, Serum 2.15 mg/dL (0.67-1.17); Magnesium 2.1 mg/dL (1.9-2.7); Potassium 3.3 mmol/L (3.5-5.0); eGFR CKD-EPI 33.1 (>60)
[2024-08-16] MEDS: Potassium Chloride LIQUID 20 MEQ/15 ML LIQUID PO ONE (09:55)
[2024-08-16 18:58] LABS: Urine Appearance Slightly Cloudy; Urine Color Amber
[2024-08-16 18:59] LABS: Urine Bilirubin Negative (Negative); Urine Blood 3+ (Large) (Negative); Urine Ketones Negative (Negative); Urine Nitrite Negative (Negative); Urine Protein 2+ (100 mg/dL) (Negative); Urine Specific Gravity 1.015 (1.005-1.030); Urine Urobilinogen 0.2 (Negative) (Negative)
[2024-08-16 19:03] LABS: Urine Bacteria 3+ /HPF (Absent); Urine Red Blood Cell 3+(>10/hpf) /HPF (0-Trace); Urine Squamous Epithelial Cell Present /HPF (Absent)
[2024-08-16 20:03] LABS: Urine Appearance Extra Turbid; Urine Bilirubin Negative (Negative); Urine Blood 1+ (Negative); Urine Glucose Negative (Negative); Urine Ketones Trace (Negative); Urine Nitrite Negative (Negative); Urine Protein 2+ (>=100 mg/dL) (Negative); Urine Specific Gravity 1.013 (1.002-1.030); Urine Urobilinogen Negative (Negative); Urine pH 6.5 (5.0-8.0)
[2024-08-16 20:18] LABS: Budding Yeast Present /HPF (Absent); Urine Bacteria Absent /HPF (Absent); Urine Color Light-Yellow; Urine Red Blood Cell 3+(>10/hpf) /HPF (0-Trace); Urine White Blood Cell 3+(>20/hpf) /HPF (0-Trace)
[2024-08-16] MEDS: fentaNYL 250 mcg/5 ml 50 MCG/ML 5 ml VIAL (250 MCG) ONE (23:08)
[2024-08-17 05:51] LABS: ABS Basophils 0.1 10^3/uL (0.0-0.1); ABS Eosinophils 0.2 10^3/uL (0.0-0.5); ABS Lymphocytes 1.8 10^3/uL (1.0-4.8); ABS Monocytes 0.7 10^3/uL (0.0-1.1); Eosinophil % 2.7 %; Hematocrit 29.2 % (38-53); Hemoglobin 9.8 g/dL (13.2-16.3); Lymphocyte % 26.1 %; Mean Corpuscular Hemoglobin 29.3 pg (27-33); Mean Corpuscular Hgb Conc 33.5 g/dL (31-36); Mean Corpuscular Volume 87.5 fL (80-97); Mean Platelet Volume 9.3 fL (7.5-11.2); Nucleated Red Blood Cells % 0.1 %/100WBC (0.0-0.8); Platelet Count 186 10^3/uL (150-450); Red Blood Count 3.34 10^6/uL (4.06-5.63); Red Cell Distribution Width 17.5 % (12-17); White Blood Count 6.7 10^3/uL (3.6-10.2)
[2024-08-17 07:21] LABS: Calcium 7.7 mg/dL (8.6-10.3); Creatinine, Serum 2.27 mg/dL (0.67-1.17); Potassium 3.8 mmol/L (3.5-5.0)
[2024-08-18 06:23] LABS: ABS Eosinophils 0.2 10^3/uL (0.0-0.5); ABS Lymphocytes 2.2 10^3/uL (1.0-4.8); ABS Monocytes 0.5 10^3/uL (0.0-1.1); ABS Neutrophils 5.1 10^3/uL (1.5-7.6); Eosinophil % 2.9 %; Hematocrit 30.3 % (38-53); Hemoglobin 9.9 g/dL (13.2-16.3); Lymphocyte % 27.4 %; Mean Corpuscular Hemoglobin 28.6 pg (27-33); Mean Corpuscular Hgb Conc 32.7 g/dL (31-36); Mean Corpuscular Volume 87.5 fL (80-97); Mean Platelet Volume 9.1 fL (7.5-11.2); Platelet Count 216 10^3/uL (150-450); Red Blood Count 3.46 10^6/uL (4.06-5.63); White Blood Count 8.2 10^3/uL (3.6-10.2)
[2024-08-18 06:33] LABS: Calcium 7.9 mg/dL (8.6-10.3); Creatinine, Serum 2.19 mg/dL (0.67-1.17); Magnesium 1.6 mg/dL (1.9-2.7); Potassium 3.9 mmol/L (3.5-5.0); eGFR CKD-EPI 32.4 (>60)
[2024-08-18] MEDS: Magnesium Sulfate 2 gm BAG 2 GM/50 ML BAG IVPB ONE (08:24)
[2024-08-19 06:51] LABS: ABS Basophils 0.1 10^3/uL (0.0-0.1); ABS Eosinophils 0.4 10^3/uL (0.0-0.5); ABS Lymphocytes 2.4 10^3/uL (1.0-4.8); ABS Monocytes 0.7 10^3/uL (0.0-1.1); ABS Neutrophils 6.7 10^3/uL (1.5-7.6); ABS Nucleated RBC 0.01 10^3/ul; Eosinophil % 3.5 %; Hematocrit 28.3 % (38-53); Hemoglobin 9.5 g/dL (13.2-16.3); Lymphocyte % 23.7 %; Mean Corpuscular Hemoglobin 29.2 pg (27-33); Mean Corpuscular Hgb Conc 33.6 g/dL (31-36); Mean Corpuscular Volume 86.9 fL (80-97); Mean Platelet Volume 9.2 fL (7.5-11.2); Nucleated Red Blood Cells % 0.1 %/100WBC (0.0-0.8); Platelet Count 217 10^3/uL (150-450); Red Blood Count 3.25 10^6/uL (4.06-5.63); Red Cell Distribution Width 16.9 % (12-17); White Blood Count 10.3 10^3/uL (3.6-10.2)
[2024-08-19 06:57] LABS: Calcium 7.7 mg/dL (8.6-10.3); Creatinine, Serum 2.14 mg/dL (0.67-1.17); Magnesium 1.8 mg/dL (1.9-2.7); Potassium 3.7 mmol/L (3.5-5.0); eGFR CKD-EPI 33.3 (>60)
[2024-08-19] MEDS ORDERED: NS 0.45% 1000 ml BAG 500 ML IV SCH (08:00)
[2024-08-19] MEDS: NS 0.45% 1000 ml BAG 500 ML IV SCH (08:05)
[2024-08-19 11:22] LABS: ABS Basophils 0.1 10^3/uL (0.0-0.1); ABS Eosinophils 0.3 10^3/uL (0.0-0.5); ABS Lymphocytes 2.1 10^3/uL (1.0-4.8); ABS Monocytes 0.6 10^3/uL (0.0-1.1); ABS Neutrophils 6.7 10^3/uL (1.5-7.6); Eosinophil % 3.1 %; Hemoglobin 9.9 g/dL (13.2-16.3); Lymphocyte % 21.5 %; Mean Corpuscular Hemoglobin 28.8 pg (27-33); Mean Corpuscular Volume 87.4 fL (80-97); Mean Platelet Volume 9.1 fL (7.5-11.2); Platelet Count 217 10^3/uL (150-450); Red Blood Count 3.43 10^6/uL (4.06-5.63); Red Cell Distribution Width 17.1 % (12-17); White Blood Count 9.8 10^3/uL (3.6-10.2)
[2024-08-19 11:45] LABS: Rapid COVID-19 Molecular Undetected (Undetected)
[2024-08-19 11:46] LABS: Calcium 7.5 mg/dL (8.6-10.3); Creatinine, Serum 1.98 mg/dL (0.67-1.17); Potassium 3.6 mmol/L (3.5-5.0); eGFR CKD-EPI 36.6 (>60)
[2024-08-20] MEDS: Polyethylene Glycol 3350 17 GM PACKET PO SCH (15:04)
[2024-08-22 13:26] VITALS: BP 90/59
== END 2024-08-22 14:50 | DRG 698 ==
LOC: ED 20:36 → SUATTDRO 08-15 02:57 → EDHOLD 08-15 02:57 → MED 08-15 17:47
PROVIDERS: ADMIT Student in an Organized Health Care Education/Training Program; ATTEND Internal Medicine